=== PATIENT | female | born 1980 | race Hispanic/Latino ===

== ENCOUNTER 2018-07-19 15:32 | Inpatient (IN) | payer BC ==
[~2018-07-19] VITALS: Ht 165.1 cm; Wt 120.2 kg
[~2018-07-19 15:32] MED LIST: CELEXA20 MG PO; LIDOCAINE HCL 2% LOCAL INJ 5 ML SDV VIAL INJ ONE; NORCO 7.5-3251 EACH PO; PROPOFOL IV EMULSION 10 MG/ML 20 ML VIAL ONE; ULTRAM50 MG PO; Z.0.ZONEGRAN100 MG
--- OUTSIDE RECORDS SUMMARY | 2018-07-19 15:36 | XMS REPORT | Continuity of Care Document ---
Author Author [facility] Interface Address Unknown Phone Unavailable Problems Problem Status Onset Date Classification Date Reported Comments Source NUMBNESS Active 07/26/2016 [facility] Endometriosis Resolved 11/17/2015 Problem 08/03/2016 [facility] Benign intracranial hypertension<sup>1</sup> Active 09/12/2014 Problem 08/03/2016 Data migrated from [employer] on 06/17/2016. Originally documented as BIH (benign intracranial hypertension). 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 There is no droop of the left face or ptosis. 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 This movement disorder is made worse by anxiety which is in evidence here but only since the BIH dx. CAIs can unmask panic disorder secondarily. Originally documented as Hemifacial spasm. 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 Originally documented as Hemiplegic migraine. 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 The patient s primary symptoms complex at this time is migraine with neurological aura (paresthesias). This is not improved by acetazolamide. Origina lly documented as Migraine with aura, intractable. [facility] Pseudotumor cerebri Resolved Problem 08/03/2016 [facility] HEADACHE Active [facility] Medications Medication Details Route Status Patient Instructions Ordering Provider Order Date Source gabapentin 300 MG Oral Capsule 300 mg, 1 cap, Route: PO, Drug form: CAP, TID, Dosing Weight 115.909, kg, Start date: 07/31/16 13:00:00 CDT, Duration: 30 day, Stop date: 08/30/16 9:00:00 CDTNotes: (Same as: Neurontin) Inactive 07/31/2016 [facility] Physical Therapy See Instructions, MISC, ONCALL, Evaluate and Treat 3 times per week for back pain and left leg weakness, # 1 unit, 0 Refill(s) On Hold 07/31/2016 [facility] topiramate 25 mg oral tablet 25 mg=1 tab, PO, Daily, # 30 tab, 3 Refill(s) On Hold 07/31/2016 [facility] gabapentin 100 MG Oral Capsule 300 mg=3 cap, PO, TID, # 270 cap, 3 Refill(s) On Hold 07/31/2016 [facility] acetaZOLAMIDE 250 mg oral tablet 750 mg=3 tab, PO, BID, # 180 tab, 3 Refill(s) On Hold 07/31/2016 [facility] Topamax 25 mg, 1 tab, Route: PO, Drug form: TAB, Daily, Start date: 07/31/16 9:00:00 CDT, Duration: 30 day, Stop date: 08/29/16 9:00:00 CDTNotes: (Same As: Topamax) "Do Not Crush" Inactive 07/31/2016 [facility] Ofirmev 1,000 mg, 100 mL, Route: IV, Drug form: INJ, ONCE, Dosing Weight 115.909, kg, PRN Pain Score 1-3, for > or=50 kg, Priority: NOW, Start date: 07/31/16 7:09:00 CDTNotes: Infuse over 15 minutes Do not exceed 4gm/day of acetaminophen MEDICATION WASTE Product Size: 1000 mg Product Wasted: _0__ mg Inactive 07/31/2016 [facility] Tylenol 650 mg, 20.3 mL, Route: PO, Drug form: LIQ, Q4H, Dosing Weight 115.909, kg, PRN Pain Score 6-10, Start date: 07/30/16 18:54:00 CDT, Duration: 30 day, Stop date: 08/29/16 18:53:00 CDTNotes: Max acetamino grtf=[id number]/day (4 gm/day). (Same as: Tylenol) No Longer Active 07/30/2016 [facility] topiramate 50 mg, Route: PO, Drug form: TAB, Q12H, Dosing Weight 115.909, kg, Start date: 07/30/16 13:03:00 CDT, Duration: 30 day, Stop date: 08/29/16 9:00:00 CDT Inactive 07/30/2016 [facility] Fioricet 1 tab, Route: PO, Drug Form: TAB, Dosing Weight 115.909, kg, Q4H, PRN Headache 1-5, Start date: 07/30/16 12:52:00 CDT, Duration: 30 day, Stop date: 08/29/16 12:51:00 CDTNotes: (acetaminophen-butalbit al-caffeine 325-50-40mg) Do not exceed 4 gm/day of acetaminophen. (Same as: Esgic, Fioricet) No Longer Active 07/30/2016 [facility] Topamax 25 mg, 1 tab, Route: PO, Drug form: TAB, ONCE, Dosing Weight 115.909, kg, Priority: NOW, Start date: 07/30/16 12:52:00 CDT, Stop date: 07/30/16 12:52:00 CDTNotes: (Same As: Topamax) "Do Not Crush" Inactive 07/30/2016 [facility] gabapentin 100 mg, 1 cap, Route: PO, Drug form: CAP, TID, Dosing Weight 111.22, kg, Start date: 07/30/16 9:00:00 CDT, Duration: 30 day, Stop date: 08/28/16 17:00:00 CDTNotes: (Same as: Neurontin) No Longer Active 07/30/2016 [facility] Acetazolamide 750 mg, 3 tab, Route: PO, Drug form: TAB, BID, Dosing Weight 111.22, kg, Start date: 07/30/16 9:00:00 CDT, Duration: 30 day, Stop date: 08/28/16 17:00:00 CDTNotes: (Same as: Diamox) No Longer Active 07/30/2016 [facility] Saline Flush 0.9% 10 ml, Route: IVP, Drug Form: INJ, Dosing Weight 111.22, kg, Q12H, Start date: 07/30/16 9:00:00 CDT, Duration: 30 day, Stop date: 08/28/16 21:00:00 CDTNotes: Same as: BD Posiflush Sterile No Longer Active 07/30/2016 [facility] Docusate Sodium 100 MG Oral Capsule 100 mg, 1 cap, Route: PO, Drug form: CAP, Q12H, Dosing Weight 111.22, kg, Start date: 07/30/16 9:00:00 CDT, Duration: 30 day, Stop date: 08/28/16 21:00:00 CDTNotes: (Same as: Colace) (Do Not Crush) No Longer Active 07/30/2016 [facility] heparin 7,500 unit, 1.5 mL, Route: SUB-Q, Drug form: INJ, Q8H, Dosing Weight 111.22, kg, Start date: 07/30/16 8:00:00 CDT, Duration: 30 day, Stop date: 08/29/16 0:00:00 CDTNotes: porcine heparin No Longer Active 07/30/2016 [facility] tramadol hydrochloride 50 MG Oral Tablet 50 mg=1 tab, PO, Daily, 0 Refill(s) On Hold 07/30/2016 [facility] gabapentin 100 MG Oral Capsule 100 mg=1 cap, PO, BID, 0 Refill(s) No Longer Active 07/30/2016 [facility] acetaZOLAMIDE 250 mg oral tablet 500 mg=2 tab, PO, BID, 0 Refill(s) No Longer Active 07/30/2016 [facility] chlorhexidine gluconate 1.2 MG/ML Mouthwash 15 mL, Route: Swab Mouth, Q4Hnow, Drug form: LIQ, Start date: 07/30/16 6:00:00 CDT, Duration: 30 day, Stop date: 08/29/16 2:00:00 CDTNotes: (Same As: Peridex) No Longer Active 07/30/2016 [facility] Magnesium Sulfate 1 gm, 100 mL, Route: IV, Drug form: INJ, ONCE, Dosing Weight 111.22, kg, PRN Headache 1-3, Priority: STAT, Start date: 07/30/16 5:09:00 CDTNotes: WASTE: F/P - Sink; E - Municipal Trash Bin Inactive 07/30/2016 [facility] Insulin regular 10 unit, 0.1 mL, Route: SUB-Q, Drug form: SOLN, Sliding Scale, Dosing Weight 111.22, kg, PRN Blood Glucose Results, Start date: 07/30/16 5:07:00 CDT, Duration: 30 day, Stop date: 08/29/16 5:06:00 CDTNot es: (Same as: Humulin R) Roll in palms of hands gently; Do not shake vigorously. "single patient use only" (Restricted to patients requiring a dose > 60 units) WASTE: F/P - Black; E - Municipal Trash Bin Stable for 28 days at room temperature Expires in days from Date No Longer Active 07/30/2016 [facility] Saline Flush 0.9% 10 ml, Route: IVP, Drug Form: INJ, Dosing Weight 111.22, kg, PRN, PRN Line Flush, Start date: 07/30/16 5:07:00 CDT, Duration: 30 day, Stop date: 08/29/16 5:06:00 CDTNotes: Same as: BD Posiflush Sterile No Longer Active 07/30/2016 [facility] ketOROLAC 30 mg/mL injectable solution 30 mg, 1 mL, Route: IVP, Drug form: INJ, ONCE, Dosing Weight 111.22, kg, Priority: STAT, Start date: 07/29/16 23:20:00 CDT, Stop date: 07/29/16 23:20:00 CDTNotes: (Same as:Toradol) IV bolus must be given >15 seconds. Give IM administration slowly and deeply into the muscle. Not for use > 4 days MEDICATION WASTE Product Size: 30 mg Product Wasted: _0__ mg Inactive 07/30/2016 [facility] Benadryl 25 mg, 0.5 mL, Route: IVP, Drug form: INJ, ONCE, Dosing Weight 111.22, kg, Priority: STAT, Start date: 07/29/16 23:19:00 CDT, Stop date: 07/29/16 23:19:00 CDTNotes: (Same as: Benadryl) Inactive 07/30/2016 [facility] Reglan 10 mg, 2 mL, Route: IVP, Drug form: INJ, ONCE, Dosing Weight 111.22, kg, Priority: STAT, Start date: 07/29/16 23:19:00 CDT, Stop date: 07/29/16 23:19:00 CDTNotes: (Same as: Reglan) Inactive 07/30/2016 [facility] Plasma-Lyte A PH-7.4 1000 ml INJ 1,000 mL 1,000 mL, Rate: 999 ml/hr, Infuse over: 1 hr, Route: IV, Dosing Weight 111.22 kg, Total Volume: 1,000, Start date: 07/29/16 23:19:00 CDT, Duration: 1 doses or times, Stop date: 07/30/16 0:18:00 CDTNotes: WASTE: F/P - Sink; E - Municipal Trash Bin Inactive 07/30/2016 [facility] Allergies, Adverse Reactions, Alerts Substance Category Reaction Severity Reaction type Status Date Reported Comments Source Immunizations Immunization Date Given Site Status Last Updated Comments Source Results Order Name Results Value Reference Range Date Interpretation Comments Source CHEM PANEL Magnesium Lvl 2.6 mg/dL 1.8 - 2.4 07/31/2016 [facility] CHEM PANEL eGFR 102 mL/min/1.73m2 07/31/2016 Result Comment: The eGFR is calculated using the CKD-EPI formula. In most young, healthy individuals the eGFR will be >90 mL/min/1.73m2. The eGFR declines with age. An eGFR of 60-89 may be normal in some populations, particularly the elderly, for whom the CKD-EPI formula has not been extensively validated. Use of the eGFR is not recommended in the following populations: Individuals with unstable creatinine concentrations, including patients and those with serious co-morbid conditions. Patients with extremes in muscle mass or diet. The data above are obtained from the National Kidney Disease Education Program (NKDEP) which additionally recommends that when the eGFR is used in patients with extremes of body mass index for purposes of drug dosing, the eGFR should be multiplied by the estimated BMI. [facility] CHEM PANEL CO2 21 meq/L 24 - 32 07/31/2016 [facility] CHEM PANEL Calcium Lvl 8.7 mg/dL 8.5 - 10.5 07/31/2016 [facility] CHEM PANEL Chloride Lvl 108 meq/L 95 - 109 07/31/2016 [facility] CHEM PANEL Potassium Lvl 4.1 meq/L 3.5 - 5.1 07/31/2016 [facility] CHEM PANEL Glucose Lvl 108 mg/dL 70 - 99 07/31/2016 [facility] CHEM PANEL BUN 14 mg/dL 7 - 22 07/31/2016 [facility] CHEM PANEL Sodium Lvl 139 meq/L 135 - 145 07/31/2016 [facility] CHEM PANEL Creatinine Lvl 0.75 mg/dL 0.50 - 1.40 07/31/2016 [facility] CHEM PANEL AGAP 14.1 meq/L 10.0 - 20.0 07/31/2016 [facility] CHEM PANEL Phosphorus 4.7 mg/dL 2.5 - 4.5 07/31/2016 [facility] HEMATOLOGY Basophils 0.6 % 0.0 - 1.0 07/31/2016 [facility] HEMATOLOGY Monocytes # 0.3 K/CMM 0.0 - 0.8 07/31/2016 [facility] HEMATOLOGY Segs-Bands # 3.7 K/CMM 1.5 - 8.1 07/31/2016 [facility] HEMATOLOGY Eosinophils 4.2 % 0.0 - 4.0 07/31/2016 [facility] HEMATOLOGY Lymphocytes # 1.6 K/CMM 1.0 - 5.5 07/31/2016 [facility] HEMATOLOGY Eosinophils # 0.2 K/CMM 0.0 - 0.5 07/31/2016 [facility] HEMATOLOGY Lymphocytes 27.0 % 20.0 - 40.0 07/31/2016 [facility] HEMATOLOGY Monocytes 5.2 % 2.0 - 12.0 07/31/2016 [facility] HEMATOLOGY Segs 63.0 % 45.0 - 75.0 07/31/2016 [facility] HEMATOLOGY MPV 8.4 fL 7.4 - 10.4 07/31/2016 [facility] HEMATOLOGY Platelet 245 K/CMM 133 - 450 07/31/2016 [facility] HEMATOLOGY RDW 13.7 % 11.5 - 14.5 07/31/2016 [facility] HEMATOLOGY RBC 4.22 M/CMM 4.20 - 5.40 07/31/2016 [facility] HEMATOLOGY WBC 5.9 K/CMM 3.7 - 10.4 07/31/2016 [facility] HEMATOLOGY MCHC 33.6 g/dL 32.0 - 36.0 07/31/2016 [facility] HEMATOLOGY MCV 92.9 fL 80.0 - 98.0 07/31/2016 [facility] HEMATOLOGY Hgb 13.2 g/dL 12.0 - 16.0 07/31/2016 [facility] HEMATOLOGY MCH 31.2 pg 27.0 - 31.0 07/31/2016 [facility] HEMATOLOGY Hct 39.2 % 36.0 - 48.0 07/31/2016 [facility] PARATHYROID PROFILE Ca Norm WB 1.07 mMol/L 1.05 - 1.25 07/31/2016 [facility] PARATHYROID PROFILE Ca Ion WB 1.11 mMol/L 1.05 - 1.25 07/31/2016 [facility] Spine lumbar wo contrast MRI Spine lumbar wo contrast MRI EXAM: MRI LUMBAR SPINE WITHOUT CONTRAST DATE: 07/30/2016 9:05 PM CDT INDICATION: Pain with radiculopathy COMPARISON: None TECHNIQUE: Multiplanar, multisequence MR imaging of the lumbar spine. IV contrast: None. FINDINGS: Axial T1-weighted images are degraded as a consequence of technical artifact, partly related to the patient's body habitus. These were repeated without success. Image quality is otherwise mildly degraded as a consequence of patient motion. However, the study remains of diagnostic utility. The conus terminates at L1. It demonstrates normal signal intensity. There is no abnormal thickening of the filum. The vertebral alignment is normal. The vertebral heights are maintained. There is normal bone marrow signal intensity. Intervertebral disc heights and signal intensity are preserved in the upper lumbar region. There is no significant spinal canal or neural foraminal stenosis. L4-L5: A moderate reduction of disc height is present accompanied by mild disc desiccation. Left central and foraminal protrusion is present displacing the traversing L5 root. This, however, does not produce significant foraminal encroachment on L4. Bilateral facet osteoarthritis is present, greater on the left without resulting canal or foraminal narrowing. L5-S1: Intervertebral disc height and signal are moderately diminished. Elevated T2 signal is seen in the posterior disc annulus indicative of an annular fissure not accompanied by a disc protrusion. Early facet arthritis is noted bilaterally. Once again, this does not cause canal or foraminal encroachment. The visualized paraspinous soft tissues are unremarkable. There is no hydronephrosis bilaterally. IMPRESSION: 1. Disc herniation on the left at L4-L5 displacing the traversing L5 nerve root. 2. Early disc degenerative change at L5-S1. The annular fissure present at this level can be an additional source of low back pain. 07/30/2016 - - Read by: Norman Thorpe MD Dictated Date/time: 07/30/16 22:39 Electronically Signed by: Norman Thorpe MD 07/30/16 22:[address] [facility] BACTERIAL - SEROLOGY Source Strep Cerebral Spinal Fluid 07/30/2016 [facility] BACTERIAL - SEROLOGY Strep pneumoniae Ag Negative (07/30/16 10:30 AM) Negative 07/30/2016 [facility] BODY FLUIDS Protein CSF 21 mg/dL 15 - 45 07/30/2016 [facility] BODY FLUIDS Supernat CSF Colorless (07/30/16 10:30 AM) Colorless 07/30/2016 [facility] BODY FLUIDS WBC CSF 0 /mm3 0 - 53 07/30/2016 [facility] BODY FLUIDS RBC CSF 0 /mm3 0 - 03 07/30/2016 [facility] BODY FLUIDS Clarity CSF Clear (07/30/16 10:30 AM) Clear 07/30/2016 [facility] BODY [facility] Comment CSF Differential not performed when WBC is zero. 07/30/2016 [facility] BODY FLUIDS Tube Num CSF 4 07/30/2016 [facility] BODY FLUIDS Color CSF Colorless (07/30/16 10:30 AM) Colorless 07/30/2016 [facility] BODY FLUIDS Comment CSF Differential not performed when WBC is zero. 07/30/2016 [facility] BODY FLUIDS RBC CSF 0 /mm3 0 - 03 07/30/2016 [facility] BODY FLUIDS Supernat CSF Colorless (07/30/16 10:30 AM) Colorless 07/30/2016 [facility] BODY FLUIDS Clarity CSF Clear (07/30/16 10:30 AM) Clear 07/30/2016 [facility] BODY FLUIDS Tube Num CSF 1 07/30/2016 [facility] BODY FLUIDS Color CSF Colorless (07/30/16 10:30 AM) Colorless 07/30/2016 [facility] BODY FLUIDS WBC CSF 0 /mm3 0 - 53 07/30/2016 [facility] BODY FLUIDS Glucose CSF 63 mg/dL 45 - 80 07/30/2016 [facility] CHEM PANEL Glucose Lvl 97 mg/dL 70 - 99 07/30/2016 [facility] FUNGAL - SEROLOGY Crypto Ag CSF Negative (07/30/16 10:30 AM) Negative 07/30/2016 [facility] ELECTROLYTES Potassium Lvl 3.8 meq/L 3.5 - 5.1 07/30/2016 [facility] ELECTROLYTES Sodium Lvl 143 meq/L 135 - 145 07/30/2016 [facility] ELECTROLYTES Total Protein 6.9 g/dL 6.4 - 8.4 07/30/2016 [facility] ELECTROLYTES AST 22 unit/L 0 - 37 07/30/2016 [facility] ELECTROLYTES ALT 44 unit/L 0 - 65 07/30/2016 [facility] ELECTROLYTES Chloride Lvl 107 meq/L 95 - 109 07/30/2016 [facility] ELECTROLYTES Calcium Lvl 8.9 mg/dL 8.5 - 10.5 07/30/2016 [facility] ELECTROLYTES Bili Total 0.4 mg/dL 0.2 - 1.3 07/30/2016 [facility] ELECTROLYTES Alk Phos 94 unit/L 39 - 136 07/30/2016 [facility] ELECTROLYTES eGFR 114 mL/min/1.73m2 07/30/2016 Result Comment: The eGFR is calculated using the CKD-EPI formula. In most young, healthy individuals the eGFR will be >90 mL/min/1.73m2. The eGFR declines with age. An eGFR of 60-89 may be normal in some populations, particularly the elderly, for whom the CKD-EPI formula has not been extensively validated. Use of the eGFR is not recommended in the following populations: Individuals with unstable creatinine concentrations, including patients and those with serious co-morbid conditions. Patients with extremes in muscle mass or diet. The data above are obtained from the National Kidney Disease Education Program (NKDEP) which additionally recommends that when the eGFR is used in patients with extremes of body mass index for purposes of drug dosing, the eGFR should be multiplied by the estimated BMI. [facility] ELECTROLYTES Creatinine Lvl 0.64 mg/dL 0.50 - 1.40 07/30/2016 [facility] ELECTROLYTES BUN 13 mg/dL 7 - 22 07/30/2016 [facility] ELECTROLYTES Albumin Lvl 3.3 g/dL 3.5 - 5.0 07/30/2016 [facility] ELECTROLYTES CO2 29 meq/L 24 - 32 07/30/2016 [facility] ELECTROLYTES Glucose Lvl 106 mg/dL 70 - 99 07/30/2016 [facility] ELECTROLYTES AGAP 10.8 meq/L 10.0 - 20.0 07/30/2016 [facility] ELECTROLYTES B/C Ratio 20 6 - 25 07/30/2016 [facility] ELECTROLYTES Globulin 3.6 g/dL 2.7 - 4.2 07/30/2016 [facility] ELECTROLYTES A/G Ratio 0.9 0.7 - 1.6 07/30/2016 [facility] HEMATOLOGY Eosinophils # 0.3 K/CMM 0.0 - 0.5 07/30/2016 [facility] HEMATOLOGY Monocytes # 0.4 K/CMM 0.0 - 0.8 07/30/2016 [facility] HEMATOLOGY Lymphocytes # 1.8 K/CMM 1.0 - 5.5 07/30/2016 [facility] HEMATOLOGY Basophils 0.5 % 0.0 - 1.0 07/30/2016 [facility] HEMATOLOGY Eosinophils 3.7 % 0.0 - 4.0 07/30/2016 [facility] HEMATOLOGY Segs-Bands # 5.1 K/CMM 1.5 - 8.1 07/30/2016 [facility] HEMATOLOGY Lymphocytes 23.1 % 20.0 - 40.0 07/30/2016 [facility] HEMATOLOGY Segs 67.3 % 45.0 - 75.0 07/30/2016 [facility] HEMATOLOGY Monocytes 5.4 % 2.0 - 12.0 07/30/2016 [facility] HEMATOLOGY PT 13.5 s 12.0 - 14.7 07/30/2016 [facility] HEMATOLOGY PTT 29.4 s 22.9 - 35.8 07/30/2016 [facility] HEMATOLOGY INR 1.01 0.85 - 1.17 07/30/2016 [facility] HEMATOLOGY RBC 4.26 M/CMM 4.20 - 5.40 07/30/2016 [facility] HEMATOLOGY MPV 7.9 fL 7.4 - 10.4 07/30/2016 [facility] HEMATOLOGY Platelet 254 K/CMM 133 - 450 07/30/2016 [facility] HEMATOLOGY RDW 13.5 % 11.5 - 14.5 07/30/2016 [facility] HEMATOLOGY Hct 38.7 % 36.0 - 48.0 07/30/2016 [facility] HEMATOLOGY Hgb 13.1 g/dL 12.0 - 16.0 07/30/2016 [facility] HEMATOLOGY MCHC 33.8 g/dL 32.0 - 36.0 07/30/2016 [facility] HEMATOLOGY MCH 30.7 pg 27.0 - 31.0 07/30/2016 [facility] HEMATOLOGY MCV 90.9 fL 80.0 - 98.0 07/30/2016 [facility] HEMATOLOGY WBC 7.6 K/CMM 3.7 - 10.4 07/30/2016 [facility] Spine lumbar puncture w fluoro DX Spine lumbar puncture w fluoro DX EXAM: Lumbar Puncture with fluoroscopic guidance. Diagnostic DATE: 07/30/2016 5:12 AM CDT INDICATION: Headache. History of elevated CSF opening pressure. TECHNIQUE Informed consent was obtained from the patient. Following the time out procedure, the lower back was prepped and draped in sterile fashion. Under fluoroscopic guidance and with the patient in the prone position a 22 gauge spinal Quincke needle was advanced into the thecal sac at the L2-L3 level. A total amount of 9 mL of clear spinal fluid was collected. Dr. Thorpe was present for the critical portions of the procedure. COMPLICATIONS: None FINDINGS: The opening pressure was 23 cm water in the prone position. FLUOROSCOPY TIME: 0.1 minutes with a skin dose of 1.9 mGy. IMPRESSION: 1. Successful LP. 2. Clear CSF. 3. Normal opening pressure. 07/30/2016 - - This report was dictated by a [employer] Instructor/Fellow. I have personally reviewed the images as well as the Resident's interpretation and agree with the findings. Read by: Kyle Cardona MD Resident: Kyle Cardona MD Dictated Date/time: 07/30/16 12:47 Electronically Signed by: Norman Thorpe MD 07/30/16 13:[address] [facility] URINE AND STOOL UA Blood Negative (07/29/16 11:43 PM) Negative 07/30/2016 [facility] URINE AND STOOL UA Bili Negative *NA* (07/29/16 11:43 PM) Negative 07/30/2016 [facility] URINE AND STOOL UA Urobilinogen 0.2 EU/dL 0.1 - 1.0 07/30/2016 [facility] URINE AND STOOL UA Nitrite Negative (07/29/16 11:43 PM) Negative 07/30/2016 [facility] URINE AND STOOL UA Leuk Est Negative (07/29/16 11:43 PM) Negative 07/30/2016 [facility] URINE AND STOOL UA Color Yellow *NA* (07/29/16 11:43 PM) Yellow 07/30/2016 [facility] URINE AND STOOL UA Turbidity Slight Cloudy (07/29/16 11:43 PM) Clear 07/30/2016 [facility] [facility] UR[facility] AND STOOL UA Glucose Negative mg/dL Negative mg/dL 07/30/2016 [facility] URINE AND STOOL UA Spec Grav 1.025 <=1.030 07/30/2016 [facility] URINE AND STOOL UA pH 6.0 5.0 - 8.0 07/30/2016 [facility] URINE AND STOOL UA Protein Negative mg/dL Negative mg/dL 07/30/2016 [facility] URINE AND STOOL UA Ketones Negative mg/dL Negative mg/dL 07/30/2016 [facility] URINE AND STOOL UA Mucus Few /LPF None Seen /LPF 07/30/2016 [facility] URINE AND STOOL UA RBC 0-2 /HPF 0 - 2 07/30/2016 [facility] URINE AND STOOL UA WBC 3-5 /HPF None Seen /HPF 07/30/2016 [facility] URINE AND STOOL UA Amorph Deirdre Few /HPF None Seen /HPF 07/30/2016 [facility] URINE AND STOOL UA Bacteria Few /HPF None Seen /HPF 07/30/2016 [facility] URINE AND STOOL UA Sq Epi Few /LPF Few /LPF 07/30/2016 [facility] CHEM PANEL eGFR 80 mL/min/1.73m2 07/30/2016 Result Comment: The eGFR is calculated using the CKD-EPI formula. In most young, healthy individuals the eGFR will be >90 mL/min/1.73m2. The eGFR declines with age. An eGFR of 60-89 may be normal in some populations, particularly the elderly, for whom the CKD-EPI formula has not been extensively validated. Use of the eGFR is not recommended in the following populations: Individuals with unstable creatinine concentrations, including patients and those with serious co-morbid conditions. Patients with extremes in muscle mass or diet. The data above are obtained from the National Kidney Disease Education Program (NKDEP) which additionally recommends that when the eGFR is used in patients with extremes of body mass index for purposes of drug dosing, the eGFR should be multiplied by the estimated BMI. [facility] CHEM PANEL Calcium Lvl 8.6 mg/dL 8.5 - 10.5 07/30/2016 [facility] CHEM PANEL AGAP 10.9 meq/L 10.0 - 20.0 07/30/2016 [facility] CHEM PANEL Potassium Lvl 3.9 meq/L 3.5 - 5.1 07/30/2016 [facility] CHEM PANEL CO2 30 meq/L 24 - 32 07/30/2016 [facility] CHEM PANEL Chloride Lvl 105 meq/L 95 - 109 07/30/2016 [facility] CHEM PANEL BUN 15 mg/dL 7 - 22 07/30/2016 [facility] CHEM PANEL Sodium Lvl 142 meq/L 135 - 145 07/30/2016 [facility] CHEM PANEL Creatinine Lvl 0.92 mg/dL 0.50 - 1.40 07/30/2016 [facility] HEMATOLOGY MCV 91.1 fL 80.0 - 98.0 07/30/2016 [facility] HEMATOLOGY MCH 31.5 pg 27.0 - 31.0 07/30/2016 [facility] HEMATOLOGY Hgb 13.0 g/dL 12.0 - 16.0 07/30/2016 [facility] HEMATOLOGY Hct 37.5 % 36.0 - 48.0 07/30/2016 [facility] HEMATOLOGY MPV 7.9 fL 7.4 - 10.4 07/30/2016 [facility] HEMATOLOGY Platelet 263 K/CMM 133 - 450 07/30/2016 [facility] HEMATOLOGY RBC 4.11 M/CMM 4.20 - 5.40 07/30/2016 [facility] HEMATOLOGY MCHC 34.6 g/dL 32.0 - 36.0 07/30/2016 [facility] HEMATOLOGY RDW 13.5 % 11.5 - 14.5 07/30/2016 [facility] HEMATOLOGY WBC 7.9 K/CMM 3.7 - 10.4 07/30/2016 [facility] HEMATOLOGY Segs 64.0 % 45.0 - 75.0 07/30/2016 [facility] HEMATOLOGY Lymphocytes 25.6 % 20.0 - 40.0 07/30/2016 [facility] HEMATOLOGY Monocytes 6.4 % 2.0 - 12.0 07/30/2016 [facility] HEMATOLOGY Eosinophils 3.5 % 0.0 - 4.0 07/30/2016 [facility] HEMATOLOGY Basophils 0.5 % 0.0 - 1.0 07/30/2016 [facility] HEMATOLOGY Segs-Bands # 5.0 K/CMM 1.5 - 8.1 07/30/2016 [facility] HEMATOLOGY Eosinophils # 0.3 K/CMM 0.0 - 0.5 07/30/2016 [facility] HEMATOLOGY Lymphocytes # 2.0 K/CMM 1.0 - 5.5 07/30/2016 [facility] HEMATOLOGY Monocytes # 0.5 K/CMM 0.0 - 0.8 07/30/2016 [facility] Brain wo contrast CT Brain wo contrast CT EXAM: CT BRAIN DATE: 07/29/2016 at 23:31 CLINICAL INFORMATION: ,, - new headache, LUE/LLE weakness/numbness COMPARISON: None TECHNIQUE: Axial images of the brain were obtained from the skull base through the vertex without contrast material administration. DLP: 870 mGycm DISCUSSION: The density of the brain parenchyma is unremarkable. No hydrocephalus, midline shift or mass effect. No acute hemorrhage. No bony lesions. Opacification of the left maxillary sinus. IMPRESSION: No intracranial abnormality. 07/29/2016 - - This report was dictated by a [employer] Instructor/Fellow. I have personally reviewed the images as well as the Resident's interpretation and agree with the findings. Read by: Abelardo Reyes MD Resident: Abelardo Reyes MD Dictated Date/time: 07/29/16 23:36 Electronically Signed by: Jayla Barajas MD 07/30/16 00:[address] [facility] Vital Signs Vital Sign Value Date Comments Source Systolic (mm Hg) 117 07/31/2016 [facility] Diastolic (mm Hg) 78 07/31/2016 [facility] Respitory Rate 18 07/31/2016 [facility] Heart Rate 55 07/31/2016 [facility] Temperature Oral (F) 98.2 F 07/31/2016 [facility] Temperature Oral (F) 97.9 F 07/31/2016 [facility] Heart Rate 55 07/31/2016 [facility] Respitory Rate 18 07/31/2016 [facility] Systolic (mm Hg) 120 07/31/2016 [facility] Diastolic (mm Hg) 79 07/31/2016 [facility] Temperature Oral (F) 97.9 F 07/31/2016 [facility] Systolic (mm Hg) 104 07/31/2016 [facility] Diastolic (mm Hg) 65 07/31/2016 [facility] Heart Rate 60 07/31/2016 [facility] Respitory Rate 18 07/31/2016 [facility] Height 165.1 cm 07/30/2016 [facility] BMI Calculated 42.52 07/30/2016 [facility] Weight 115.909 07/30/2016 [facility] Encounters Location Location Details Encounter Type Encounter Number Reason For Visit Attending Provider ADM Date DC Date Status Source [facility] Inpatient [id number] Bladimir [facility] 07/29/2016 07/31/2016 [facility] Procedures Procedure Code Date Perfomer Comments Source Spinal puncture, lumbar, diagnostic 89169 07/30/2016 [facility] section [id number] [facility] Hysterectomy [id number] [facility] Tonsillectomy [id number] [facility]
--- OUTSIDE RECORDS SUMMARY | 2018-07-19 15:36 | XMS REPORT | Summary of Care ---
Author Author [facility] Organization [facility] Address Unknown Phone Unavailable Encounter MARLIN Montoya(TATIANA) [id number] Date(s): 07/29/16 - 07/31/16 [facility] [address] [employer] provided by [facility] [place] [address]- Discharge Disposition: Home or Self Care Attending Physician: Bladimir Miller MD Admitting Physician: Bladimir Miller MD Vital Signs 1 2 3 Most recent to oldest [Reference Range]: 165.1 cm (07/30/16 7:38 AM) Height 98.2 DegF (07/31/16 12:01 PM) 97.9 DegF (07/31/16 8:10 AM) 97.9 DegF (07/31/16 3:35 AM) Temperature Oral [96.4-99.1 DegF] 117/78 mmHg (07/31/16 12:01 PM) 120/79 mmHg (07/31/16 8:10 AM) 104/65 mmHg (07/31/16 3:35 AM) Blood Pressure [90-140/60-90 mmHg] 18 BRMIN (07/31/16 12:01 PM) 18 BRMIN (07/31/16 8:10 AM) 18 BRMIN (07/31/16 3:35 AM) Respiratory Rate [14-20 BRMIN] 55 bpm *LOW* (07/31/16 12:01 PM) 55 bpm *LOW* (07/31/16 8:10 AM) 60 bpm (07/31/16 3:35 AM) Peripheral Pulse Rate [60-100 bpm] 115.909 kg (07/30/16 7:38 AM) Weight 42.52 m2 (07/30/16 7:38 AM) Body Mass Index Problem List Condition Effective Dates Status Health Status Informant 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 Originally documented as BIH (benign intracranial hypertension). 2Data migrated from [employer] on 06/17/2016. There is no droop of the left face or ptosis. 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 This movement disorder is made worse by anxiety which is in evidence he re but only since the BIH dx. CAIs can unmask panic disorder secondarily. Origin ally documented as Hemifacial spasm. 3Data migrated from [employer] on 06/17/2016. Originally documented as Hemiplegic migraine. 4Data migrated from [employer] on 06/17/2016. The patient s primary symptoms complex at this time is migraine with neurological aura (paresthesias). This is not improved by acetazolamide. Originally documented as Migraine with aura, intractable. Allergies, Adverse Reactions, Alerts Substance Reaction Severity Status NKDA Active Medications acetaZOLAMIDE 250 mg oral tablet 750 mg=3 tab, PO, BID, # 180 tab, 3 Refill(s) Start Date: 07/31/16 Stop Date: 11/28/16 Status: Suspended acetaZOLAMIDE 250 mg oral tablet 500 mg=2 tab, PO, BID, 0 Refill(s) Start Date: 07/30/16 Stop Date: 07/31/16 Status: Discontinued Benadryl 25 mg, 0.5 mL, Route: IVP, Drug form: INJ, ONCE, Dosing Weight 111.22, kg, Prior ity: STAT, Start date: 07/29/16 23:19:00 CDT, Stop date: 07/29/16 23:19:00 CDT Notes: (Same as: Benadryl) Start Date: 07/29/16 Stop Date: 07/29/16 Status: Completed chlorhexidine topical 0.12% liquid 15 mL, Route: Swab Mouth, Q4Hnow, Drug form: LIQ, Start date: 07/30/16 6:00:00 C DT, Duration: 30 day, Stop date: 08/29/16 2:00:00 CDT Notes: (Same As: Peridex) Start Date: 07/30/16 Stop Date: 07/31/16 Status: Discontinued Diamox 750 mg, 3 tab, Route: PO, Drug form: TAB, BID, Dosing Weight 111.22, kg, Start d ate: 07/30/16 9:00:00 CDT, Duration: 30 day, Stop date: 08/28/16 17:00:00 CDT Notes: (Same as: Diamox) Start Date: 07/30/16 Stop Date: 07/31/16 Status: Discontinued docusate sodium 100 mg oral capsule 100 mg, 1 cap, Route: PO, Drug form: CAP, Q12H, Dosing Weight 111.22, kg, Start date: 07/30/16 9:00:00 CDT, Duration: 30 day, Stop date: 08/28/16 21:00:00 CDT Notes: (Same as: Colace) (Do Not Crush) Start Date: 07/30/16 Stop Date: 07/31/16 Status: Discontinued Fioricet 1 tab, Route: PO, Drug Form: TAB, Dosing Weight 115.909, kg, Q4H, PRN Headache 1 -5, Start date: 07/30/16 12:52:00 CDT, Duration: 30 day, Stop date: 08/29/16 12: 51:00 CDT Notes: (lausykrpyvbxm-xfqkmbjuwb-oetamuxp 325-50-40mg) Do not exceed 4 gm/day o f acetaminophen. (Same as: Esgic, Fioricet) Start Date: 07/30/16 Stop Date: 07/31/16 Status: Discontinued gabapentin 100 mg, 1 cap, Route: PO, Drug form: CAP, TID, Dosing Weight 111.22, kg, Start d ate: 07/30/16 9:00:00 CDT, Duration: 30 day, Stop date: 08/28/16 17:00:00 CDT Notes: (Same as: Neurontin) Start Date: 07/30/16 Stop Date: 07/31/16 Status: Discontinued gabapentin 100 mg oral capsule 300 mg=3 cap, PO, TID, # 270 cap, 3 Refill(s) Start Date: 07/31/16 Stop Date: 11/28/16 Status: Suspended gabapentin 100 mg oral capsule 100 mg=1 cap, PO, BID, 0 Refill(s) Start Date: 07/30/16 Stop Date: 07/31/16 Status: Discontinued gabapentin 300 mg oral capsule 300 mg, 1 cap, Route: PO, Drug form: CAP, TID, Dosing Weight 115.909, kg, Start date: 07/31/16 13:00:00 CDT, Duration: 30 day, Stop date: 08/30/16 9:00:00 CDT Notes: (Same as: Neurontin) Start Date: 07/31/16 Stop Date: 07/31/16 Status: Discontinued heparin 7,500 unit, 1.5 mL, Route: SUB-Q, Drug form: INJ, Q8H, Dosing Weight 111.22, kg, Start date: 07/30/16 8:00:00 CDT, Duration: 30 day, Stop date: 08/29/16 0:00:00 CDT Notes: porcine heparin Start Date: 07/30/16 Stop Date: 07/31/16 Status: Discontinued Insulin regular 10 unit, 0.1 mL, Route: SUB-Q, Drug form: SOLN, Sliding Scale, Dosing Weight 111 .22, kg, PRN Blood Glucose Results, Start date: 07/30/16 5:07:00 CDT, Duration: 30 day, Stop date: 08/29/16 5:06:00 CDT Notes: (Same as: Humulin R) Roll in palms of hands gently; Do not shake vigorou sly. "single patient use only"(Restricted to patients requiring a dose > 60 units)WASTE: F/P - Black; E - Municipal Trash Bin Stable for 28 days at room temperatureExpires in days from Date Start Date: 07/30/16 Stop Date: 07/31/16 Status: Discontinued Insulin regular 2 unit, 0.02 mL, Route: SUB-Q, Drug form: SOLN, Sliding Scale, Dosing Weight 111 .22, kg, PRN Blood Glucose Results, Start date: 07/30/16 5:07:00 CDT, Duration: 30 day, Stop date: 08/29/16 5:06:00 CDT Notes: (Same as: Humulin R) Roll in palms of hands gently; Do not shake vigorou sly. "single patient use only"(Restricted to patients requiring a dose > 60 units)WASTE: F/P - Black; E - Municipal Trash Bin Stable for 28 days at room temperatureExpires in days from Date Start Date: 07/30/16 Stop Date: 07/31/16 Status: Discontinued Insulin regular 4 unit, 0.04 mL, Route: SUB-Q, Drug form: SOLN, Sliding Scale, Dosing Weight 111 .22, kg, PRN Blood Glucose Results, Start date: 07/30/16 5:07:00 CDT, Duration: 30 day, Stop date: 08/29/16 5:06:00 CDT Notes: (Same as: Humulin R) Roll in palms of hands gently; Do not shake vigorou sly. "single patient use only"(Restricted to patients requiring a dose > 60 units)WASTE: F/P - Black; E - Municipal Trash Bin Stable for 28 days at room temperatureExpires in days from Date Start Date: 07/30/16 Stop Date: 07/31/16 Status: Discontinued Insulin regular 6 unit, 0.06 mL, Route: SUB-Q, Drug form: SOLN, Sliding Scale, Dosing Weight 111 .22, kg, PRN Blood Glucose Results, Start date: 07/30/16 5:07:00 CDT, Duration: 30 day, Stop date: 08/29/16 5:06:00 CDT Notes: (Same as: Humulin R) Roll in palms of hands gently; Do not shake vigorou sly. "single patient use only"(Restricted to patients requiring a dose > 60 units)WASTE: F/P - Black; E - Municipal Trash Bin Stable for 28 days at room temperatureExpires in days from Date Start Date: 07/30/16 Stop Date: 07/31/16 Status: Discontinued Insulin regular 8 unit, 0.08 mL, Route: SUB-Q, Drug form: SOLN, Sliding Scale, Dosing Weight 111 .22, kg, PRN Blood Glucose Results, Start date: 07/30/16 5:07:00 CDT, Duration: 30 day, Stop date: 08/29/16 5:06:00 CDT Notes: (Same as: Humulin R) Roll in palms of hands gently; Do not shake vigorou sly. "single patient use only"(Restricted to patients requiring a dose > 60 units)WASTE: F/P - Black; E - Municipal Trash Bin Stable for 28 days at room temperatureExpires in days from Date Start Date: 07/30/16 Stop Date: 07/31/16 Status: Discontinued ketOROLAC 30 mg/mL injectable solution 30 mg, 1 mL, Route: IVP, Drug form: INJ, ONCE, Dosing Weight 111.22, kg, Priorit y: STAT, Start date: 07/29/16 23:20:00 CDT, Stop date: 07/29/16 23:20:00 CDT Notes: (Same as:Toradol) IV bolus must be given >15 seconds. Give IM administration slowly and deeply into the muscle.Not for use > 4 days MEDICATION WASTE Product Size: 30 mgProduct Wasted: _0__ mg Start Date: 07/29/16 Stop Date: 07/29/16 Status: Completed magnesium sulfate 1 gm, 100 mL, Route: IV, Drug form: INJ, ONCE, Dosing Weight 111.22, kg, PRN Hea dache 1-3, Priority: STAT, Start date: 07/30/16 5:09:00 CDT Notes: WASTE: F/P - Sink; E - Municipal Trash Bin Start Date: 07/30/16 Stop Date: 07/30/16 Status: Completed Ofirmev 1,000 mg, 100 mL, Route: IV, Drug form: INJ, ONCE, Dosing Weight 115.909, kg, TN N Pain Score 1-3, for > or=50 kg, Priority: NOW, Start date: 07/31/16 7:09:00 CDT Notes: Infuse over 15 minutesDo not exceed 4gm/day of acetaminophen MEDICAT ION WASTE Product Size: 1000 mgProduct Wasted: _0__ mg Start Date: 07/31/16 Stop Date: 07/31/16 Status: Completed Physical Therapy See Instructions, MISC, ONCALL, Evaluate and Treat 3 times per week for back gwen n and left leg weakness, # 1 unit, 0 Refill(s) Start Date: 07/31/16 Status: Suspended Plasma-Lyte A PH-7.4 1000 ml INJ 1,000 mL 1,000 mL, Rate: 999 ml/hr, Infuse over: 1 hr, Route: IV, Dosing Weight 111.22 kg , Total Volume: 1,000, Start date: 07/29/16 23:19:00 CDT, Duration: 1 doses or t imes, Stop date: 07/30/16 0:18:00 CDT Notes: WASTE: F/P - Sink; E - Municipal Trash Bin Start Date: 07/29/16 Stop Date: 07/29/16 Status: Completed Reglan 10 mg, 2 mL, Route: IVP, Drug form: INJ, ONCE, Dosing Weight 111.22, kg, Priorit y: STAT, Start date: 07/29/16 23:19:00 CDT, Stop date: 07/29/16 23:19:00 CDT Notes: (Same as: Reglan) Start Date: 07/29/16 Stop Date: 07/29/16 Status: Completed Saline Flush 0.9% 10 ml, Route: IVP, Drug Form: INJ, Dosing Weight 111.22, kg, PRN, PRN Line Flush , Start date: 07/30/16 5:07:00 CDT, Duration: 30 day, Stop date: 08/29/16 5:06:0 0 CDT Notes: Same as: BD Posiflush Sterile Start Date: 07/30/16 Stop Date: 07/31/16 Status: Discontinued Saline Flush 0.9% 10 ml, Route: IVP, Drug Form: INJ, Dosing Weight 111.22, kg, Q12H, Start date: 0 07/30/16 9:00:00 CDT, Duration: 30 day, Stop date: 08/28/16 21:00:00 CDT Notes: Same as: BD Posiflush Sterile Start Date: 07/30/16 Stop Date: 07/31/16 Status: Discontinued Topamax 25 mg, 1 tab, Route: PO, Drug form: TAB, Daily, Start date: 07/31/16 9:00:00 CDT , Duration: 30 day, Stop date: 08/29/16 9:00:00 CDT Notes: (Same As: Topamax)"Do Not Crush" Start Date: 07/31/16 Stop Date: 07/31/16 Status: Discontinued Topamax 25 mg, 1 tab, Route: PO, Drug form: TAB, ONCE, Dosing Weight 115.909, kg, Priori ty: NOW, Start date: 07/30/16 12:52:00 CDT, Stop date: 07/30/16 12:52:00 CDT Notes: (Same As: Topamax)"Do Not Crush" Start Date: 07/30/16 Stop Date: 07/30/16 Status: Completed topiramate 50 mg, Route: PO, Drug form: TAB, Q12H, Dosing Weight 115.909, kg, Start date: 0 07/30/16 13:03:00 CDT, Duration: 30 day, Stop date: 08/29/16 9:00:00 CDT Start Date: 07/30/16 Stop Date: 07/30/16 Status: Discontinued topiramate 25 mg oral tablet 25 mg=1 tab, PO, Daily, # 30 tab, 3 Refill(s) Start Date: 07/31/16 Stop Date: 11/28/16 Status: Suspended tramadol 50 mg oral tablet 50 mg=1 tab, PO, Daily, 0 Refill(s) Start Date: 07/30/16 Status: Suspended Tylenol 650 mg, 20.3 mL, Route: PO, Drug form: LIQ, Q4H, Dosing Weight 115.909, kg, PRN Pain Score 6-10, Start date: 07/30/16 18:54:00 CDT, Duration: 30 day, Stop date: 08/29/16 18:53:00 CDT Notes: Max dpttzmktrpxns=5385kx/day (4 gm/day). (Same as: Tylenol) Start Date: 07/30/16 Stop Date: 07/31/16 Status: Discontinued Results ELECTROLYTES 1 2 3 Most recent to oldest [Reference Range]: 139 mEq/L (4/15/17 5:55 AM) 143 mEq/L (07/30/16 6:34 AM) 142 mEq/L (07/29/16 11:14 PM) Sodium Lvl [135-145 mEq/L] 4.1 mEq/L (07/31/16 5:55 AM) 3.8 mEq/L (07/30/16 6:34 AM) 3.9 mEq/L (07/29/16 11:14 PM) Potassium Lvl [3.5-5.1 mEq/L] 108 mEq/L (07/31/16 5:55 AM) 107 mEq/L (07/30/16 6:34 AM) 105 mEq/L (07/29/16 11:14 PM) Chloride Lvl [95-109 mEq/L] 21 mEq/L *LOW* (07/31/16 5:55 AM) 29 mEq/L (07/30/16 6:34 AM) 30 mEq/L (07/29/16 11:14 PM) CO2 [24-32 mEq/L] 14.1 mEq/L (07/31/16 5:55 AM) 10.8 mEq/L (07/30/16 6:34 AM) 10.9 mEq/L (07/29/16 11:14 PM) AGAP [10.0-20.0 mEq/L] CHEM PANEL 1 2 3 Most recent to oldest [Reference Range]: 0.75 mg/dL (07/31/16 5:55 AM) 0.64 mg/dL (07/30/16 6:34 AM) 0.92 mg/dL (07/29/16 11:14 PM) Creatinine Lvl [0.50-1.40 mg/dL] 102 mL/min/1.73m2 1 *NA* (07/31/16 5:55 AM) 114 mL/min/1.73m2 2 *NA* (07/30/16 6:34 AM) 80 mL/min/1.73m2 3 *NA* (07/29/16 11:14 PM) eGFR 14 mg/dL (07/31/16 5:55 AM) 13 mg/dL (07/30/16 6:34 AM) 15 mg/dL (07/29/16 11:14 PM) BUN [7-22 mg/dL] 20 (07/30/16 6:34 AM) B/C Ratio [6-25] 108 mg/dL *HI* (07/31/16 5:55 AM) 97 mg/dL (07/30/16 10:30 AM) 106 mg/dL *HI* (07/30/16 6:34 AM) Glucose Lvl [70-99 mg/dL] 6.9 g/dL (07/30/16 6:34 AM) Total Protein [6.4-8.4 g/dL] 3.3 g/dL *LOW* (07/30/16 6:34 AM) Albumin Lvl [3.5-5.0 g/dL] 3.6 g/dL (07/30/16 6:34 AM) Globulin [2.7-4.2 g/dL] 0.9 (07/30/16 6:34 AM) A/G Ratio [0.7-1.6] 8.7 mg/dL (07/31/16 5:55 AM) 8.9 mg/dL (07/30/16 6:34 AM) 8.6 mg/dL (07/29/16 11:14 PM) Calcium Lvl [8.5-10.5 mg/dL] 4.7 mg/dL *HI* (07/31/16 5:55 AM) Phosphorus [2.5-4.5 mg/dL] 2.6 mg/dL *HI* (07/31/16 5:55 AM) Magnesium Lvl [1.8-2.4 mg/dL] 44 unit/L (07/30/16 6:34 AM) ALT [0-65 unit/L] 22 unit/L (07/30/16 6:34 AM) AST [0-37 unit/L] 94 unit/L (07/30/16 6:34 AM) Alk Phos [39-136 unit/L] 0.4 mg/dL (07/30/16 6:34 AM) Bili Total [0.2-1.3 mg/dL] 1Result Comment: The eGFR is calculated using the [...] from the National Kidney Disease Education Program ( NKDEP) which additionally recommends that when the eGFR is used in patients with extremes of body mass index for purposes of drug dosing, the eGFR should be mul tiplied by the estimated BMI. 2Result Comment: The eGFR is calculated using the [...] from the National Kidney Disease Education Program ( NKDEP) which additionally recommends that when the eGFR is used in patients with extremes of body mass index for purposes of drug dosing, the eGFR should be mul tiplied by the estimated BMI. 3Result Comment: The eGFR is calculated using the [...] from the National Kidney Disease Education Program ( NKDEP) which additionally recommends that when the eGFR is used in patients with extremes of body mass index for purposes of drug dosing, the eGFR should be mul tiplied by the estimated BMI. PARATHYROID PROFILE 1 2 3 Most recent to oldest [Reference Range]: 1.11 mMol/L (07/31/16 5:55 AM) Ca Ion WB [1.05-1.25 mMol/L] 1.07 mMol/L (07/31/16 5:55 AM) Ca Norm WB [1.05-1.25 mMol/L] URINE AND STOOL 1 2 3 Most recent to oldest [Reference Range]: Slight Cloudy (07/29/16 11:43 PM) UA Turbidity [Clear] Yellow *NA* (07/29/16 11:43 PM) UA Color [Yellow] 6.0 (07/29/16 11:43 PM) UA pH [5.0-8.0] 1.025 (07/29/16 11:43 PM) UA Spec Grav [<=1.030] Negative mg/dL (07/29/16 11:43 PM) UA Glucose [Negative mg/dL] Negative (07/29/16 11:43 PM) UA Blood [Negative] Negative mg/dL *NA* (07/29/16 11:43 PM) UA Ketones [Negative mg/dL] Negative mg/dL (07/29/16 11:43 PM) UA Protein [Negative mg/dL] 0.2 EU/dL (07/29/16 11:43 PM) UA Urobilinogen [0.1-1.0 EU/dL] Negative *NA* (07/29/16 11:43 PM) UA Bili [Negative] Negative (07/29/16 11:43 PM) UA Leuk Est [Negative] Negative (07/29/16 11:43 PM) UA Nitrite [Negative] 3-5 /HPF (07/29/16 11:43 PM) UA WBC [None Seen /HPF] 0-2 /HPF (07/29/16 11:43 PM) UA RBC [0-2 /HPF] Few /HPF (07/29/16 11:43 PM) UA Bacteria [None Seen /HPF] Few /LPF (07/29/16 11:43 PM) UA Sq Epi [Few /LPF] Few /HPF *ABN* (07/29/16 11:43 PM) UA Amorph Deirdre [None Seen /HPF] Few /LPF (07/29/16 11:43 PM) UA Mucus [None Seen /LPF] BODY FLUIDS 1 2 3 Most recent to oldest [Reference Range]: 63 mg/dL (07/30/16 10:30 AM) Glucose CSF [45-80 mg/dL] 21 mg/dL (07/30/16 10:30 AM) Protein CSF [15-45 mg/dL] 4 *NA* (07/30/16 10:30 AM) 1 *NA* (07/30/16 10:30 AM) Tube Num CSF Colorless (07/30/16 10:30 AM) Colorless (07/30/16 10:30 AM) Color CSF [Colorless] Clear (07/30/16 10:30 AM) Clear (07/30/16 10:30 AM) Clarity CSF [Clear] Colorless (07/30/16 10:30 AM) Colorless (07/30/16 10:30 AM) Supernat CSF [Colorless] 0 /mm3 (07/30/16 10:30 AM) 0 /mm3 (07/30/16 10:30 AM) RBC CSF [0-0 /mm3] 0 /mm3 (07/30/16 10:30 AM) 0 /mm3 (07/30/16 10:30 AM) WBC CSF [0-5 /mm3] Differential not performed when WBC is zero. *NA* (07/30/16 10:30 AM) Differential not performed when WBC is zero. *NA* (07/30/16 10:30 AM) Comment CSF HEMATOLOGY 1 2 3 Most recent to oldest [Reference Range]: 5.9 K/CMM (07/31/16 5:55 AM) 7.6 K/CMM (07/30/16 6:34 AM) 7.9 K/CMM (07/29/16 11:14 PM) WBC [3.7-10.4 K/CMM] 4.22 M/CMM (07/31/16 5:55 AM) 4.26 M/CMM (07/30/16 6:34 AM) 4.11 M/CMM *LOW* (07/29/16 11:14 PM) RBC [4.20-5.40 M/CMM] 13.2 g/dL (07/31/16 5:55 AM) 13.1 g/dL (07/30/16 6:34 AM) 13.0 g/dL (07/29/16 11:14 PM) Hgb [12.0-16.0 g/dL] 39.2 % (07/31/16 5:55 AM) 38.7 % (07/30/16 6:34 AM) 37.5 % (07/29/16 11:14 PM) Hct [36.0-48.0 %] 92.9 fL (07/31/16 5:55 AM) 90.9 fL (07/30/16 6:34 AM) 91.1 fL (07/29/16 11:14 PM) MCV [80.0-98.0 fL] 31.2 pg *HI* (07/31/16 5:55 AM) 30.7 pg (07/30/16 6:34 AM) 31.5 pg *HI* (07/29/16 11:14 PM) MCH [27.0-31.0 pg] 33.6 g/dL (07/31/16 5:55 AM) 33.8 g/dL (07/30/16 6:34 AM) 34.6 g/dL (07/29/16 11:14 PM) MCHC [32.0-36.0 g/dL] 13.7 % (07/31/16 5:55 AM) 13.5 % (07/30/16 6:34 AM) 13.5 % (07/29/16 11:14 PM) RDW [11.5-14.5 %] 245 K/CMM (07/31/16 5:55 AM) 254 K/CMM (07/30/16 6:34 AM) 263 K/CMM (07/29/16 11:14 PM) Platelet [133-450 K/CMM] 8.4 fL (07/31/16 5:55 AM) 7.9 fL (07/30/16 6:34 AM) 7.9 fL (07/29/16 11:14 PM) MPV [7.4-10.4 fL] 63.0 % (07/31/16 5:55 AM) 67.3 % (07/30/16 6:34 AM) 64.0 % (07/29/16 11:14 PM) Segs [45.0-75.0 %] 27.0 % (07/31/16 5:55 AM) 23.1 % (07/30/16 6:34 AM) 25.6 % (07/29/16 11:14 PM) Lymphocytes [20.0-40.0 %] 5.2 % (07/31/16 5:55 AM) 5.4 % (07/30/16 6:34 AM) 6.4 % (07/29/16 11:14 PM) Monocytes [2.0-12.0 %] 4.2 % *HI* (07/31/16 5:55 AM) 3.7 % (07/30/16 6:34 AM) 3.5 % (07/29/16 11:14 PM) Eosinophils [0.0-4.0 %] 0.6 % (07/31/16 5:55 AM) 0.5 % (07/30/16 6:34 AM) 0.5 % (07/29/16 11:14 PM) Basophils [0.0-1.0 %] 3.7 K/CMM (07/31/16 5:55 AM) 5.1 K/CMM (07/30/16 6:34 AM) 5.0 K/CMM (07/29/16 11:14 PM) Segs-Bands # [1.5-8.1 K/CMM] 1.6 K/CMM (07/31/16 5:55 AM) 1.8 K/CMM (07/30/16 6:34 AM) 2.0 K/CMM (07/29/16 11:14 PM) Lymphocytes # [1.0-5.5 K/CMM] 0.3 K/CMM (07/31/16 5:55 AM) 0.4 K/CMM (07/30/16 6:34 AM) 0.5 K/CMM (07/29/16 11:14 PM) Monocytes # [0.0-0.8 K/CMM] 0.2 K/CMM (07/31/16 5:55 AM) 0.3 K/CMM (07/30/16 6:34 AM) 0.3 K/CMM (07/29/16 11:14 PM) Eosinophils # [0.0-0.5 K/CMM] 13.5 seconds (07/30/16 6:34 AM) PT [12.0-14.7 seconds] 1.01 (07/30/16 6:34 AM) INR [0.85-1.17] 29.4 seconds (07/30/16 6:34 AM) PTT [22.9-35.8 seconds] BACTERIAL - SEROLOGY 1 2 3 Most recent to oldest [Reference Range]: Cerebral Spinal Fluid *NA* (07/30/16 10:30 AM) Source Strep Negative (07/30/16 10:30 AM) Strep pneumoniae Ag [Negative] FUNGAL - SEROLOGY 1 2 3 Most recent to oldest [Reference Range]: Negative (07/30/16 10:30 AM) Crypto Ag CSF [Negative] Immunizations No data available for this section Procedures Procedure Date Related Diagnosis Body Site Spinal puncture, lumbar, diagnostic 07/30/16 section Hysterectomy Tonsillectomy Social History Social History Type Response Alcohol Current, Frequency: 1-2 times per week. Smoking Status Never smoker; Exposure to Tobacco Smoke None; Cigarette Smoking Last 365 Days No; Reg Smoking Cessation Counseling No Assessment and Plan Extracted from: Title: [facility] Neurology Author: Ian Adam MD Date: 07/31/16 Progress Note General Neurology Progress Note Subjective: Patient denies any new complains. No major overnight events. HPI: This is a 35 yo F with a hx of pseudotumor cerebri since 2009 who presents with MUNIZ and blurry vision in the left eye. Patient's MUNIZ are typical for her pseudotumor cerebri. They started about 3 weeks ago and have been progressive. They are located at the back of her neck, top of her head and behind her eyes. Described as pressure like. Last for a couple of hours when she takes tramadol and diamox and after she gets a spinal tap. Worse when laying down. Her last tap was early last year. Her blurry vision started a week ago and it's only in the left eye. She endorses having eye pain with the MUNIZ but no double vision. Patient was tried on topamax in the past but that failed to improve her symptoms. She used to follow up with a neurologist( last seen in november) but he moves and she didnt follow up with anyone else. She follows up with NSGY for spinal impact when she had a fall 3 weeks ago and was found to have cervical spine stenosis per her? Patient endorses having left sided weakness/tingling and numbness since 2009 that has been progressively getting worse. Sh endorses having occasional left facial droop which she says improves after receiving steroids. Patient denies having a hx of strokes in the past. she had brain and spine imaging done before which she claims has been normal. Hospital Course: Admitted to general neurology for w/u of headache and back pain. MRI w/o evidence of increased pressure. Opthalmology did not note any abnormality with the fundal exam. LP with opening pressure of 23. CSF testing normal. Headache releived with increased diamox and topamax. Pts back pain investigated with MRI L -[facility] showed disk herniation for which Ortho (Spine) was consulted and they recommended no surgical intervention. Medications: Scheduled Meds (7):acetaZOLAMIDE (Diamox), chlorhexidine topical (chlorhexidine topical 0.12% liquid), docusate (docusate sodium 100 mg oral capsule), gabapentin (gabapentin 300 mg oral capsule), heparin, sodium chloride (Saline Flush 0.9%), topiramate (Topamax) Unscheduled Meds: None PRN Meds (8):APAP/butalbital/caffeine (Fioricet), Insulin regular, Insulin regular, Insulin regular, Insulin regular, Insulin regular, acetaminophen (Tylenol), sodium chloride (Saline Flush 0.9%) One Time Meds (1):(Completed) topiramate (Topamax) Continuous Infusions: None Objective: Vitals: VitalsTmp(F)[id number] 07/31 12:[id number]--- 07/31 08:[id number]--- 07/31 03:[id number]--- 07/30 23:[id number]--- 07/30 19:[id number]--- 24 Hr Tmax: 98.4F (36.89c) at 07/30 16:40Vital Signs are the last 5 in the past 48 hours. Physical Exam: HEAD - Normocephalic and atraumatic LUNGS - Clear to auscultation, no rales or rhonchi CVS - Rate rhythm regular, no murmur, equal pulses bilaterally ABDOMEN - Soft, non tender, with normal bowel sounds. No hepatosplenomegaly NEUROLOGY: AAO*3 Speech: fluent, comprehension intact, repetition and naming intact electrician helper powerhouse: 2-12 intact Motor: Tone: Normal Power: 5/5 in all groups of muscles in all four limbs Reflexes: 2+ symmetrical bilaterally Plantar: Flexor Drift: absent Sensory: Intact light touch and pin prick sensation Intact vibration and position sense Cerebellar signs: Intact FNT, Rombergs negative Gait: normal Labs: Labs (Last four charted values) WBC 5.9(JUL 15)7.6(JUL 14)7.9(JUL 29) Hgb 13.2(JUL 15)13.1(JUL 14)13.0(JUL 29) Hct 39.2(JUL 15)38.7(JUL 14)37.5(JUL 13) Plt 245(JUL 15)254(JUL 14)263(JUL 29) Na 139(JUL 15)143(JUL 14)142(JUL 29) K 4.1(JUL 15)3.8(JUL 14)3.9(JUL 29) CO2 L 21(JUL 15)29(JUL 14)30(JUL 29) Cl 108(JUL 15)107(JUL 14)105(JUL 29) Cr 0.75(JUL 15)0.64(JUL 14)0.92(JUL 29) BUN 14(JUL 15)13(JUL 14)15(JUL 29) Glucose Random H 108(JUL 15)97(JUL 14)H 106(JUL 14)97(JUL 29) Mg H 2.6(JUL 15) Phos H 4.7(JUL 15) Ca 8.7(JUL 15)8.9(JUL 14)8.6(JUL 29) PT 13.5(JUL 30) INR 1.01(JUL 30) PTT 29.4(JUL 30) Diagnostic Work Up : MRI L-Spine 1. Disc herniation on the left at L4-L5 displacing the traversing L5 nerve root. 2. Early disc degenerative change at L5-S1. The annular fissure present at this level can be an additional source of low back pain. LP Opening pressure 23mm Assessment: This is a 35 yo F with a hx of pseudotumor cerebri since 2009 who presents with MUNIZ and blurry vision in the left eye. Plan: #Headache - Possible exacerbtion of increased intracranial hypertension - LP with normal opening pressure - inceased Diamox to 750mg - started topamax 25 daily - MUNIZ well controlled #Low back pain - s/p Fall 3 weeks ago - worsening left sided weakness since fall - MRI L-spine with L4-5 disc herniation - Ortho consulted, appreciate recs - No surgical intervention PPX - SQ Heparin Diet Regular Adult Dispo: Discharge Home Ian Adam PGY-2, Neurology [facility] Pager # [phone] Addendum Neurology Attending by Angela, -Topamax to help migraine prevention and wt lost Bladimir - increase patient Gabapentin for pain control Ceasar BERMEO - Continue Diamox on The patient was seen and examined by me with the resident and I agree with the 08/01/2016 History/Exam documented. 21:49 Bladimir Miller MD
[2018-07-19 16:07] VITALS: BP 128/85
[2018-07-19] MEDS ORDERED: ASPIRIN 81 MG CHEW TAB PO ONE (16:15)
[2018-07-19] MEDS ORDERED: MORPHINE SULFATE 2 MG/ML SYR 1ML IV PRN (16:30)
[2018-07-19 16:38] VITALS: BP 128/85
--- NOTE | 2018-07-19 17:02 | NUR ---
Recvd patient as direct admit from Dr Freeman's office, assisted her to bed, c/o chest hurting intermittently, no SOB, Skin intact, call light in reach,
[2018-07-19] MEDS: MORPHINE SULFATE INJ 4 MG/ML INJ 1ML IV PRN (17:05)
[2018-07-19 17:22] LABS: BASOPHILS % 0.1 % (0.0-1.0); EOSINOPHILS # (AUTO) 0.3 (0.0-0.4); EOSINOPHILS % 2.4 % (0.0-6.0); HEMATOCRIT 38.1 % (34.2-44.1); HEMOGLOBIN 12.8 g/dL (12.0-16.0); MEAN CORPUSCULAR HEMOGLOBIN 31.7 pg (28-32); MEAN CORPUSCULAR HGB CONC 33.6 g/dL (31-35); MEAN CORPUSCULAR VOLUME 94.3 fL (81-99); MONOCYTES # (AUTO) 0.6 (0.2-0.8); MONOCYTES % 5.2 % (4.4-11.3); NEUTROPHILS # (AUTO) 9.2 (2.1-6.9); NEUTROPHILS % 82.9 % (38.7-80.0); PLATELET COUNT 259 x10e3/uL (140-360); RED BLOOD COUNT 4.04 x10e6/uL (3.6-5.1); RED CELL DISTRIBUTION WIDTH 12.9 % (11.7-14.4)
[2018-07-19 17:44] LABS: ALANINE AMINOTRANSFERASE 40 IU/L (0-55); ALBUMIN 3.3 g/dL (3.5-5.0); ALKALINE PHOSPHATASE 108 IU/L (40-150); ANION GAP 11.3 mmol/L (8-16); BLOOD UREA NITROGEN 11 mg/dL (7-26); BUN/CREATININE RATIO 16 (6-25); CALCIUM 8.7 mg/dL (8.4-10.2); CARBON DIOXIDE 27 mmol/L (22-29); CHLORIDE 104 mmol/L (98-107); CREATINE KINASE 75 IU/L (29-168); CREATININE, SERUM 0.69 mg/dL (0.57-1.11); EST GLOMERULAR FILTRATION RATE > 60 ML/MIN (60-); GLUCOSE 110 mg/dL (74-118); POTASSIUM 3.3 mmol/L (3.5-5.1); SODIUM 139 mmol/L (136-145)
[2018-07-19 18:05] LABS: THYROID STIMULATING HORMONE 0.715 uIU/mL (0.350-4.940)
[2018-07-19] MEDS ORDERED: ENOXAPARIN INJ 80 MG/0.8 ML SYR SC STA ×2 (18:33→23:25)
--- NOTE | 2018-07-19 19:00 | NUR ---
received report from day nurse. patient is resting comfortably in bed. bed is in lowest position and call medellin is within reach.
[2018-07-19] MEDS ORDERED: SODIUM CHLORIDE 0.9% 50ML 50 ML ONE (19:39)
[2018-07-19] MEDS ORDERED: IOPAMIDOL 370 MG/ML 200 ML INFUS..BTL INJ ONE (19:39)
--- NOTE | 2018-07-19 19:40 | Diagnostic Imaging Report ---
EXAM: CT Chest WITH contrast (PE Protocol) INDICATION: Chest pain. Shortness of breath. ^chest pain ^[id number] ^1906 COMPARISON: None TECHNIQUE: Chest was scanned utilizing a multidetector helical scanner from the lung apex through the level of the diaphragm after administration of IV contrast. Thin section reconstructions were obtained with special concentration on the pulmonary arteries. Coronal and sagittal reformations were obtained. Pulmonary embolism protocol was performed. IV CONTRAST: 100 mL of Isovue-370 COMPLICATIONS: None RADIATION DOSE: Total DLP: 549.47 mGy*cm Estimated effective dose: (DLP x 0.014 x size factor) mSv CTDIvol has been reviewed. It is below the limits set by the Radiation Protocol Committee (RPC). Dose modulation, iterative reconstruction, and/or weight based adjustment of the mA/kV was utilized to reduce the radiation dose to as low as reasonably achievable. FINDINGS: LINES/ TUBES: None. LUNGS AND AIRWAYS: Numerous scattered pulmonary emboli are seen. This is best seen on series 2 image 44 in the posterior left lung and series 2 image 53 in the posterior mid right lung. Innumerable ill-defined groundglass nodular densities scattered diffusely throughout the lungs could be due to pulmonary infarcts or possibly multifocal pneumonia in the appropriate clinical setting. Malignancy is thought to be less likely. Airways are normal. PLEURA: The pleural spaces are clear. HEART AND MEDIASTINUM: The thyroid gland is normal. Prominent mediastinal lymph nodes are seen. The heart is normal in size. There is no pericardial effusion. . Main pulmonary artery measures 3.9 cm in diameter and the ascending aorta measures 3.1 cm. UPPER ABDOMEN: Unremarkable BONES: The visualized bony thorax is within normal limits. SOFT TISSUES: Unremarkable. IMPRESSION: Numerous scattered pulmonary emboli are seen. This is best seen on series 2 image 44 in the posterior left lung and series 2 image 53 in the posterior mid right lung. Innumerable ill-defined groundglass nodular densities scattered diffusely throughout the lungs could be due to pulmonary infarcts or possibly multifocal pneumonia in the appropriate clinical setting. Malignancy is thought to be less likely. Follow-up imaging is indicated to document clearing. Findings discussed with the nurse Adriel, taking care of the patient by Dr. Jiménez on July 19, 2018 at 7:30 PM Signed by: Dr. Alcides Jiménez M.D. on 07/19/2018 7:36 PM
[2018-07-19] MEDS: ALBUTEROL SULF 0.083% NEB SOLN 3 ML NEB NEB SCH (19:45)
[2018-07-19 20:00] VITALS: BP 100/62
[2018-07-19 20:31] VITALS: BP 100/62
[2018-07-19] MEDS ORDERED: SODIUM CHLORIDE 0.9% 250ML 250 ML ONE (22:37)
[2018-07-19] MEDS: CEFTRIAXONE SOD 1 GM/NS 50 ML 50 ML IV SCH (23:03)
[2018-07-19] MEDS: AZITHROMYCIN 500MG/NS 250 ML 250 ML IV SCH (23:36)
[2018-07-20] VITALS (14 sets, daily range): BP systolic 93–138; BP diastolic 52–91
--- NOTE | 2018-07-20 01:41 | History and Physical ---
REASON FOR ADMISSION: The patient comes in with acute shortness of breath and chest pain. HISTORY OF PRESENT ILLNESS: Ms. Christy Rhodes is a 37-year-old morbidly obese lady with a history of benign intracranial hypertension, was in usual state of health until she started with chest pain yesterday last night, and the patient proceeded with chest pain and shortness of breath in the morning, felt like anterior chest pressure, nonradiating, and exacerbated with movement and also with shortness of breath. PAST MEDICAL HISTORY: 1. History of benign intracranial hypertension. 2. Obesity. 3. Remote history of hypertension, which she stopped taking the medication. MEDICATIONS: At home are Diamox 250 mg two tablets twice a day, but she has stopped taking it in about three months duration. ALLERGIES: NO KNOWN ALLERGIES. REVIEW OF SYSTEMS: Positive for chest pain, positive for shortness of breath. Positive for nausea. No vomiting. No diarrhea. No constipation. No rectal bleeding. No hematochezia. No hematemesis. No diplopia. No blurry vision. No other neurological findings. FAMILY HISTORY: Positive for diabetes and positive for hypertension. PHYSICAL EXAMINATION: GENERAL: The patient is alert and oriented x3. VITAL SIGNS: Temperature is 98.8, blood pressure 128/85, respirations of 21, pulse of 87, pulse oximetry of 97% on 2 L of oxygen. HEENT: Normocephalic, atraumatic. Pupils are reactive to light and accommodation. CVS: S1, S2 distant. Regular rate and rhythm. ABDOMEN: Nontender and nondistended. LUNGS: Decreased air entry in all lung ford. EXTREMITIES: No clubbing, no cyanosis, and trace edema present. LABORATORY VALUES: Initial white count 7000 with left shift, neutrophil count of 82.9. Coags, D-dimer was 1.23. Chemistries show sodium 139, potassium is 3.3, BUN of 11, creatinine 0.69. ALT and AST 40 and 39, and TSH is 0.75. IMAGING: Pending CT of the lungs, PE protocol. ASSESSMENT AND PLAN: 1. Chest pain. Plan is to rule out acute pulmonary embolism. CT of the chest has been ordered pending images. The patient's D-dimer has been elevated. 2. Leukocytosis with possible lower respiratory tract infection. We will start the patient on IV antibiotics. Rocephin and Zithromax will be continued. Blood cultures have been ordered and the patient will be put on Lovenox. 3. Shortness of breath. Again, CT scan will be ordered and for chest pain the patient will have serial cardiac enzymes. The patient is kept in observation. The Cardiology consult has been done to with Dr. Bañuelos for further recommendation and clinical course. We will continue to monitor the patient in the hospital and possible discharge if findings are normal by tomorrow. MD MICHELLE Vanessa/MODL /[id number]
[2018-07-20] MEDS: ALBUTEROL SULF 0.083% NEB SOLN 3 ML NEB NEB SCH ×4 (01:45→20:10)
[2018-07-20] MEDS: CEFTRIAXONE SOD 1 GM/NS 50 ML 50 ML IV SCH ×2 (05:42→17:35)
[2018-07-20 05:48] LABS: BASOPHILS % 0.1 % (0.0-1.0); EOSINOPHILS # (AUTO) 0.3 (0.0-0.4); EOSINOPHILS % 3.6 % (0.0-6.0); HEMATOCRIT 37.6 % (34.2-44.1); HEMOGLOBIN 12.5 g/dL (12.0-16.0); LYMPHOCYTES # (AUTO) 1.8 (1.0-3.2); LYMPHOCYTES % 18.7 % (18.0-39.1); MEAN CORPUSCULAR HEMOGLOBIN 31.3 pg (28-32); MEAN CORPUSCULAR HGB CONC 33.2 g/dL (31-35); MONOCYTES # (AUTO) 0.6 (0.2-0.8); NEUTROPHILS # (AUTO) 6.8 (2.1-6.9); NEUTROPHILS % 71.3 % (38.7-80.0); PLATELET COUNT 253 x10e3/uL (140-360); RED CELL DISTRIBUTION WIDTH 12.9 % (11.7-14.4)
[2018-07-20 05:57] LABS: ANION GAP 10.6 mmol/L (8-16); BLOOD UREA NITROGEN 9 mg/dL (7-26); BUN/CREATININE RATIO 14 (6-25); CALCIUM 8.4 mg/dL (8.4-10.2); CARBON DIOXIDE 26 mmol/L (22-29); CHLORIDE 104 mmol/L (98-107); CREATININE, SERUM 0.65 mg/dL (0.57-1.11); EST GLOMERULAR FILTRATION RATE > 60 ML/MIN (60-); GLUCOSE 115 mg/dL (74-118); POTASSIUM 3.6 mmol/L (3.5-5.1); SODIUM 137 mmol/L (136-145)
--- NOTE | 2018-07-20 06:00 | NUR ---
in building rounding on patient. MD has seen patients CT results and has placed new orders.
--- NOTE | 2018-07-20 06:53 | NUR ---
report given to day nurse. patient is resting comfortably in bed. bed is in lowest position and call medellin is within reach
[2018-07-20] MEDS: MORPHINE SULFATE INJ 4 MG/ML INJ 1ML IV PRN (07:32)
[2018-07-20] MEDS ORDERED: ENOXAPARIN SODIUM INJ 100 MG/ML SYR SC SCH (09:00)
--- NOTE | 2018-07-20 10:19 | Progress Note ---
DATE: 07/20/2018 SUBJECTIVE: The patient was admitted directly for acute shortness of breath. The patient had a D-dimer elevated. CT scan ordered. The patient was found to have multiple showered emboli in the lungs. The patient is currently getting Lovenox. We will increase Lovenox to 100 mg b.i.d. Currently, she is still complaining of some shortness of breath. Chest pain has dissipated. OBJECTIVE: VITAL SIGNS: Temperature is 99.1, blood pressure is 98/55, and pulse oximetry of 95% on 2 L of oxygen. HEENT: Normocephalic and atraumatic. Pupils are reactive to light and accommodation. CVS: S1 and S2 normal. Regular rate and rhythm. LUNGS: Decreased air entry into bilateral lung ford. EXTREMITIES: No clubbing, no cyanosis, and no edema. IMAGING STUDIES: CT of the chest shows numerous scattered pulmonary emboli and innumerable ill-defined ground glass nodular densities scattered diffusely throughout the lung, could be due to pulmonary infarcts. LABORATORY VALUES: From today, white count is 9.5, hemoglobin of 12.5, hematocrit 37.6. Left shift has dissipated. MICROBIOLOGY: Blood cultures are pending at this time. The echocardiogram is pending and cardiology consult is on the schedule. ASSESSMENT: 1. Acute shortness of breath. 2. Pulmonary embolism. 3. History of benign intraocular hypertension. PLAN: Plan is to increase the Lovenox to 100 mg twice a day. Cardiology consult on-call. Thrombophilia panel ordered, echocardiogram ordered, and also bilateral lower venous extremity Dopplers are also ordered. Further recommendation per the clinical course. The patient has been counseled on the findings and is agreeable to the plan. Continue with monitoring the patient and continuous pulse oximetry will be monitored and follow the patient along with consultants. MD MICHELLE Vanessa/MODL /[id number]
--- NOTE | 2018-07-20 12:25 | NUR ---
SOCIAL WORK INITIAL ASSESSMENT Loss Prevention Auditor to bedside to discuss plan of care with patient/family. CM/SW role and care transitions discussed. Anticipated discharge plan discussed along with duration of care. CM/SW discussed patients right to make decisions in care. CM/SW work hours given. Patient lives: IN [facility] STORY HOME WITH FAMILY Admit/Transfer: VIA ED POA/Emergency contact: NATALIA [phone] Current/Previous Home Health: NONE PCP/Follow-up Care: [facility] Current/Previous DME: NONE Other Services: NONE Employment Status: ADMINISTRATION Areas of Concerns: NONE Referral Needs: NONE Education Needs: NONE IMM/LUNDBERG given and signed (if applicable): NA Goal for discharge: RETURN HOME WITH NO NEEDS CM/SW left business card at the bedside with contact information. Name and number was also written on the patients whiteboard. Patient verbalized understanding of discussion. CM will follow-up with ongoing discharge and transition of care needs.
--- NOTE | 2018-07-20 14:34 | Consultation ---
DATE OF CONSULTATION: 07/20/2018 REASON FOR CONSULTATION: Chest pain. HISTORY OF PRESENT ILLNESS: This is a pleasant 37-year-old female, who presented with chest pain. According to the patient, for the last 2-3 weeks, she has been having chest pain accompanied with shortness of breath that she decided to see her PCP. She denied any palpitation, any diaphoresis, any headache, nausea, or vomiting. 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 She had a D-dimer done that was positive and she had a CT chest done that showed numerous scattered pulmonary emboli. Troponin x1 was negative. PAST MEDICAL HISTORY: Benign intracranial hypertension, she was treated with Diamox; obesity; anxiety; depression; migraine headache. PAST SURGICAL HISTORY: , hysterectomy, appendectomy, cyst removal from the ovary, and tonsillectomy. FAMILY HISTORY: Positive for diabetes and hypertension. SOCIAL HISTORY: No smoking, no drinking. 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 MEDICATIONS: She was not on any medication. ALLERGIES: SHE IS NOT ALLERGIC TO ANY MEDICATION. REVIEW OF SYSTEMS: Negative except those mentioned above. PHYSICAL EXAMINATION: VITAL SIGNS: Temperature 99, heart rate 72, blood pressure 98/56, respirations 17, oxygen saturation 96% on 2 L nasal cannula. GENERAL: She is awake, alert, and oriented x3. HEENT: Mucous membranes moist. NECK: Supple. LUNGS: Bilateral with decreased breath sounds. CARDIOVASCULAR: S1, S2 present. ABDOMEN: Soft. NEUROLOGICAL: Intact. EXTREMITIES: With no edema. LABS: Sodium 137, potassium 3.6, chloride 104, CO2 of 26, BUN 9, creatinine 0.66, glucose 115. White blood cell 9.57, hemoglobin 12.5, hematocrit 37.6, platelet 253. IMPRESSION: 1. Chest pain. 2. Positive D-dimer. 3. Obesity. 4. Pulmonary emboli. PLAN: 1. We will put her on Lovenox b.i.d. and slowly transition her to p.o. anticoagulation before discharge. 2. We will get bilateral lower extremity venous Doppler to rule out DVT. 3. She is pending an echo to assess the LV and the valve function. 4. We will get serial cardiac enzymes and get an EKG. Further cardiac workup pending clinical course. Thank you for this consultation. Dictated by John Luna, CASTING SUPERVISOR MD CIERRA Hdz/BANDAR /[id number]
--- NOTE | 2018-07-20 16:49 | NUR ---
patient resting in bed, c/o chest hurting and posterior neck pain, but denies any pain medicine, not in any distress or SOB, KEEP MONITORING
--- NOTE | 2018-07-20 18:20 | NUR ---
On rounds patient still c/o chest hurting during breathing and c/o coughing . Not in any acute distress , spo2 -96% on RA . Notified Dr Freeman, new consult Dr Leonard for PE, Keep monitoring. endorsed to next shift
[2018-07-20] MEDS: AZITHROMYCIN 500MG/NS 250 ML 250 ML IV SCH (18:48)
[2018-07-20] MEDS ORDERED: HEPARIN SOD (PORCINE) 5,000 UNIT/ML VIAL IV ONE (19:30)
[2018-07-20 20:24] LABS: BASOPHILS % 0.2 % (0.0-1.0); EOSINOPHILS # (AUTO) 0.3 (0.0-0.4); EOSINOPHILS % 3.9 % (0.0-6.0); HEMATOCRIT 38.7 % (34.2-44.1); HEMOGLOBIN 12.8 g/dL (12.0-16.0); LYMPHOCYTES # (AUTO) 1.2 (1.0-3.2); MEAN CORPUSCULAR HEMOGLOBIN 31.3 pg (28-32); MEAN CORPUSCULAR HGB CONC 33.1 g/dL (31-35); MEAN CORPUSCULAR VOLUME 94.6 fL (81-99); MONOCYTES # (AUTO) 0.5 (0.2-0.8); MONOCYTES % 5.5 % (4.4-11.3); NEUTROPHILS # (AUTO) 6.7 (2.1-6.9); NEUTROPHILS % 76.1 % (38.7-80.0); PLATELET COUNT 249 x10e3/uL (140-360); RED BLOOD COUNT 4.09 x10e6/uL (3.6-5.1); RED CELL DISTRIBUTION WIDTH 12.9 % (11.7-14.4)
--- NOTE | 2018-07-20 20:30 | NUR ---
Received to 191 from Obs unit. Placed on EKG, pulse ox & NBP for monitoring.
[2018-07-20 20:33] LABS: INR 0.96; PROTHROMBIN TIME 13.3 seconds (11.9-14.5)
[2018-07-20] MEDS: HEPARIN 25,000U/0.45% NS 250ML 1,500 UNIT in Premix Bag 250 ML IV SCH (21:39)
[2018-07-21] VITALS (24 sets, daily range): BP systolic 98–165; BP diastolic 51–88
[2018-07-21] MEDS: ALBUTEROL SULF 0.083% NEB SOLN 3 ML NEB NEB SCH ×4 (01:08→19:25)
--- NOTE | 2018-07-21 03:22 | Consultation ---
DATE OF CONSULTATION: 07/20/2018 Pulmonary Critical Care consultation. REASON FOR THE CONSULTATION: Pulmonary embolism. CHIEF COMPLAINT: Shortness of breath. HISTORY OF PRESENT ILLNESS: Ms. Rhodes is a 37-year-old female with pseudotumor cerebri, presented with shortness of breath, found to have pulmonary embolism and became increasingly short of breath and hence pulmonary consultation was called. CT of the chest is reported as numerous scattered pulmonary emboli and innumerable ill-defined ground-glass densities scattered throughout the lungs. The patient is complaining of chest pain and shortness of breath and she is unable to complete sentence. REVIEW OF SYSTEMS: GENERAL: Denies any fever, chills. HEAD: Denies any head trauma. ENT: Denies any earaches. CVS: Chest pain, shortness of breath. RESPIRATORY: Shortness of breath. GI: Denies any nausea, vomiting. The rest of the review of systems are negative except as in HPI. PAST MEDICAL HISTORY: Pseudotumor cerebri. SOCIAL HISTORY: She does not smoke. Does not drink. PHYSICAL EXAMINATION: VITAL SIGNS: Temperature is 97, pulse of 92, blood pressure is 132/72, respiratory rate of 18, and O2 saturation is 90% of room air. HEENT: Head is atraumatic, normocephalic. NECK: Supple. CHEST: Pain on taking deep breath, otherwise clear. HEART: S1, S2 audible. ABDOMEN: Soft, nontender. EXTREMITIES: No pedal edema. NEUROLOGIC: Awake and alert. LABORATORY DATA: White count of 8000, hemoglobin 12.8, and platelets 249. Chemistry is within normal limits. INR is 0.93. CT chest shows innumerable small clots. ASSESSMENT/PLAN: Ms. Rhodes is a 37-year-old female with shortness of breath and multiple pulmonary nodules with multiple pulmonary embolism. Etiology is not very clear. 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 RECOMMENDATIONS: Continue the patient on heparin. Observe in ICU. Currently, the patient is not in circulatory shock and will not need tPA. Multiple lung nodules are very concerned that either they are pulmonary infarcts versus infectious, unlikely that it is infectious because there are multiple clots in almost same distribution. MD CHANDA Barroso/BANDAR /[id number]
--- NOTE | 2018-07-21 06:10 | NUR ---
PTT 140.5. Heparin held x 60 min.
[2018-07-21] MEDS: CEFTRIAXONE SOD 1 GM/NS 50 ML 50 ML IV SCH ×2 (06:33→18:06)
[2018-07-21 07:00] LABS: BASOPHILS % 0.1 % (0.0-1.0); EOSINOPHILS # (AUTO) 0.4 (0.0-0.4); HEMATOCRIT 39.5 % (34.2-44.1); HEMOGLOBIN 12.9 g/dL (12.0-16.0); LYMPHOCYTES % 24.6 % (18.0-39.1); MEAN CORPUSCULAR HEMOGLOBIN 31.4 pg (28-32); MEAN CORPUSCULAR HGB CONC 32.7 g/dL (31-35); MEAN CORPUSCULAR VOLUME 96.1 fL (81-99); MONOCYTES # (AUTO) 0.5 (0.2-0.8); MONOCYTES % 6.3 % (4.4-11.3); NEUTROPHILS # (AUTO) 5.1 (2.1-6.9); NEUTROPHILS % 63.6 % (38.7-80.0); PLATELET COUNT 261 x10e3/uL (140-360); RED BLOOD COUNT 4.11 x10e6/uL (3.6-5.1); RED CELL DISTRIBUTION WIDTH 12.9 % (11.7-14.4)
--- NOTE | 2018-07-21 07:28 | Progress Note ---
DATE: 07/21/2018 SUBJECTIVE: The patient is here for acute pulmonary embolism and shortness of breath. Last night, the patient's shortness of breath was intense and got more intense and the patient was transferred to the ICU, switched to heparin drip and the patient is on heparin protocol for PE at this time. Heparin has been held for higher PTT rate as of now. Asymptomatic, did sleep well yesterday. The patient, however, was short of breath when oxygen was taken out from the nasal cannula. OBJECTIVE: VITAL SIGNS: Temperature is 97.6, pulse of 83, respirations of 20, blood pressure is 135/76, pulse oximetry of 98% on O2 of 2 L. HEENT: Normocephalic and atraumatic. Pupils are reactive to light and accommodation. CVS: S1 and S2. Regular rate and rhythm. ABDOMEN: Nontender and nondistended. LUNGS: Positive for decreased air entry into all lung ford. EXTREMITIES: No clubbing, no cyanosis, and no edema. LABORATORY DATA: Other reports; echocardiogram, 60% to 65% EF. No evidence of aortic regurgitation. No mitral regurgitation. Left ventricle size was normal. Bilateral venous Dopplers were negative too. PLAN: The patient will be continued in ICU at this time with a heparin drip. 1. Plan is to do a CT of the abdomen and pelvis to delineate any hypercoagulable states including malignancies. 2. If this is negative, a possible VANDANA to rule out endocardial lesions will be also done. We will also start the patient back on warfarin at 5 mg for anticoagulation as an outpatient basis. Further recommendation per clinical course. The patient will stay in the ICU until the patient is stable and has stable labs. MD ERIKA VanessaJ/MODL /[id number]
--- NOTE | 2018-07-21 08:25 | NUR ---
Taken for CT Scan of abdomen and pelvis via wheelchair with ALTON Jarrett at bedside.
--- NOTE | 2018-07-21 08:39 | NUR ---
TRANSFERED TO ICU FOR PULMONARY EMBOLI AND RESP DISTRESS
--- NOTE | 2018-07-21 09:01 | Diagnostic Imaging Report ---
CT of the abdomen and pelvis, with contrast, 07/21/2018. History: PE, concern for malignancy. Comparison: CT chest 07/19/2018. Technique: Multidetector CT scanning of the abdomen and pelvis was performed from the level of the lung bases to the inferior pubic rami after intravenous administration of contrast. No oral contrast was administered. Coronal and sagittal multiplanar reformations were obtained. RADIATION DOSE: Total DLP: 974 mGy*cm Dose modulation, iterative reconstruction, and/or weight based adjustment of the mA/kV was utilized to reduce the radiation dose to as low as reasonably achievable. Discussion: LUNG BASES: Cardiomegaly, pulmonary enlargement, and bibasilar consolidation are grossly unchanged. ABDOMEN: Gallstones are present. There is no gallbladder wall thickening. The liver, biliary tree, spleen, pancreas, adrenal glands, and kidneys are normal. The hepatic vein, portal vein, and splenic vein are patent. The abdominal aorta is within normal limits for size. A retroaortic left renal vein is present. Evaluation of bowel is limited without oral contrast. There is no bowel dilatation. There is no evidence of adenopathy or free fluid. A small fat-containing umbilical hernia is present. Subcutaneous injection is noted in the left anterior abdomen. PELVIS: The bladder is mildly distended. The uterus and adnexa are not visualized. There is no evidence of free fluid or adenopathy. BONES AND SOFT TISSUES: Degenerative changes are present throughout the lumbar spine without evidence of lytic or sclerotic lesion. IMPRESSION: 1. Cholelithiasis. 2. Small fat-containing umbilical hernia. 3. Status post hysterectomy. 4. Stable pulmonary findings. Otherwise unremarkable CT of the abdomen and pelvis. Signed by: Lemuel Quinonez on 07/21/2018 8:57 AM
--- NOTE | 2018-07-21 12:30 | NUR ---
PTT RESULT WAS 61.9 AND HEPARIN DRIP WILL REMAIN THE SAME AT 1300U/HR= 13CC/HR. NEXT PTT DUE AT 18:00 TODAY.
[2018-07-21] MEDS ORDERED: IOPAMIDOL 370 MG/ML 200 ML INFUS..BTL INJ ONE (14:08)
[2018-07-21] MEDS ORDERED: SODIUM CHLORIDE 0.9% 50ML 50 ML ONE (14:08)
[2018-07-21] MEDS: WARFARIN SOD 3 MG TAB PO SCH (17:14)
[2018-07-21] MEDS: HEPARIN 25,000U/0.45% NS 250ML 1,500 UNIT in Premix Bag 250 ML IV SCH (19:00)
--- NOTE | 2018-07-21 19:30 | NUR ---
PTT remains therapeutic (66.3). No changes made to heparin rate. Heparin infusion remains at 1300 un/hr or 13 mL/hr.
[2018-07-21] MEDS: AZITHROMYCIN 500MG/NS 250 ML 250 ML IV SCH (20:30)
[2018-07-22] VITALS (24 sets, daily range): BP systolic 97–134; BP diastolic 54–92
[2018-07-22] MEDS: ALBUTEROL SULF 0.083% NEB SOLN 3 ML NEB NEB SCH ×4 (00:30→18:50)
[2018-07-22 05:33] LABS: BASOPHILS % 0.3 % (0.0-1.0); EOSINOPHILS # (AUTO) 0.5 (0.0-0.4); EOSINOPHILS % 7.1 % (0.0-6.0); HEMATOCRIT 37.4 % (34.2-44.1); HEMOGLOBIN 12.3 g/dL (12.0-16.0); LYMPHOCYTES % 27.3 % (18.0-39.1); MEAN CORPUSCULAR HEMOGLOBIN 31.5 pg (28-32); MEAN CORPUSCULAR HGB CONC 32.9 g/dL (31-35); MEAN CORPUSCULAR VOLUME 95.9 fL (81-99); MONOCYTES # (AUTO) 0.5 (0.2-0.8); MONOCYTES % 6.7 % (4.4-11.3); NEUTROPHILS # (AUTO) 4.3 (2.1-6.9); NEUTROPHILS % 58.2 % (38.7-80.0); PLATELET COUNT 265 x10e3/uL (140-360); RED CELL DISTRIBUTION WIDTH 12.9 % (11.7-14.4)
[2018-07-22 05:58] LABS: INR 0.91; PROTHROMBIN TIME 12.7 seconds (11.9-14.5)
[2018-07-22 06:01] LABS: ANION GAP 12.9 mmol/L (8-16); BLOOD UREA NITROGEN 11 mg/dL (7-26); BUN/CREATININE RATIO 17 (6-25); CALCIUM 8.8 mg/dL (8.4-10.2); CARBON DIOXIDE 26 mmol/L (22-29); CHLORIDE 104 mmol/L (98-107); CREATININE, SERUM 0.64 mg/dL (0.57-1.11); EST GLOMERULAR FILTRATION RATE > 60 ML/MIN (60-); GLUCOSE 98 mg/dL (74-118); POTASSIUM 3.9 mmol/L (3.5-5.1); SODIUM 139 mmol/L (136-145)
[2018-07-22] MEDS: CEFTRIAXONE SOD 1 GM/NS 50 ML 50 ML IV SCH ×2 (06:38→18:30)
--- NOTE | 2018-07-22 10:03 | Diagnostic Imaging Report ---
EXAMINATION: CHEST SINGLE (PORTABLE) INDICATION: Increased coughing F/U COMPARISON: None. A CT chest dated 07/19/2018. FINDINGS: TUBES and LINES: None. LUNGS: Bilateral hypoinflation. Ill-defined patchy/nodular densities scattered throughout the lungs bilaterally, particularly in the lung bases. PLEURA: No pleural effusion or pneumothorax. HEART AND MEDIASTINUM: The cardiomediastinal silhouette is unremarkable. BONES AND SOFT TISSUES: No acute osseous lesion. Soft tissues are unremarkable. UPPER ABDOMEN: No free air under the diaphragm. IMPRESSION: Allowing for technical differences, no significant interval change in bilateral ill-defined pulmonary nodules, and bibasilar subsegmental atelectasis; Findings may reflect a combination of septic emboli, infectious, and inflammatory etiology. Less likely neoplastic etiology. Recommend continued follow-up to resolution. Signed by: Dr. Linwood Live M.D. on 07/22/2018 9:59 AM
[2018-07-22] MEDS: PREDNISONE 20 MG TAB PO SCH (11:59)
[2018-07-22] MEDS: MORPHINE SULFATE INJ 4 MG/ML INJ 1ML IV PRN (14:59)
[2018-07-22] MEDS ORDERED: METHYLPREDNISOLONE SOD SUCC 40 MG/ML VIAL 1ML IV NR (15:00)
[2018-07-22] MEDS: WARFARIN SOD 3 MG TAB PO SCH (17:17)
[2018-07-22] MEDS: AZITHROMYCIN 500MG/NS 250 ML 250 ML IV SCH (18:30)
--- NOTE | 2018-07-22 19:00 | NUR ---
Heparin gtt infusing at 1300 un/hr or 13 mL/hr per protocol. PTT to be drawn at 0500 4/7 per protocol.
[2018-07-22] MEDS: HEPARIN 25,000U/0.45% NS 250ML 1,500 UNIT in Premix Bag 250 ML IV SCH (19:30)
[2018-07-22] MEDS ORDERED: MORPHINE SULFATE INJ 4 MG/ML INJ 1ML IV NR (19:30)
[2018-07-22] MEDS ORDERED: ASPIRIN 81 MG CHEW TAB PO ONE (19:30)
[2018-07-22 20:42] LABS: CREATINE KINASE MB 0.5 ng/mL (0-5.0)
[2018-07-22] MEDS ORDERED: KETOROLAC TROMETHAMINE 30 MG/ML VIAL IV ONE (23:15)
[2018-07-23] VITALS (26 sets, daily range): BP systolic 89–138; BP diastolic 57–95
[2018-07-23] MEDS: ALBUTEROL SULF 0.083% NEB SOLN 3 ML NEB NEB SCH ×4 (01:40→19:30)
[2018-07-23 04:02] LABS: CREATINE KINASE MB 0.5 ng/mL (0-5.0)
[2018-07-23 05:37] LABS: BASOPHILS % 0.2 % (0.0-1.0); EOSINOPHILS # (AUTO) 0.1 (0.0-0.4); EOSINOPHILS % 1.6 % (0.0-6.0); HEMATOCRIT 38.6 % (34.2-44.1); HEMOGLOBIN 12.5 g/dL (12.0-16.0); LYMPHOCYTES # (AUTO) 1.7 (1.0-3.2); LYMPHOCYTES % 20.5 % (18.0-39.1); MEAN CORPUSCULAR HEMOGLOBIN 30.7 pg (28-32); MEAN CORPUSCULAR HGB CONC 32.4 g/dL (31-35); MEAN CORPUSCULAR VOLUME 94.8 fL (81-99); MONOCYTES # (AUTO) 0.4 (0.2-0.8); MONOCYTES % 5.2 % (4.4-11.3); NEUTROPHILS # (AUTO) 5.7 (2.1-6.9); NEUTROPHILS % 71.6 % (38.7-80.0); PLATELET COUNT 290 x10e3/uL (140-360); RED BLOOD COUNT 4.07 x10e6/uL (3.6-5.1); RED CELL DISTRIBUTION WIDTH 12.5 % (11.7-14.4)
[2018-07-23] MEDS ORDERED: KETOROLAC TROMETHAMINE 30 MG/ML VIAL IV STA (06:35)
[2018-07-23] MEDS: CEFTRIAXONE SOD 1 GM/NS 50 ML 50 ML IV SCH ×2 (06:36→18:02)
--- NOTE | 2018-07-23 08:12 | NUR ---
PTT result was 62.8 and within therapeutic range and therefore no changes to Heparin drip at 1300u/hr. Next PTT will be tomorrow am.
[2018-07-23] MEDS: PREDNISONE 20 MG TAB PO SCH (09:14)
[2018-07-23 10:43] LABS: CREATINE KINASE MB 0.5 ng/mL (0-5.0)
[2018-07-23] MEDS ORDERED: PANTOPRAZOLE SOD 40 MG TABEC PO SCH (11:00)
[2018-07-23] MEDS: SUCRALFATE 1 GM/10 ML SUSP NG SCH ×3 (11:30→20:22)
[2018-07-23 11:49] LABS: INR 0.91; PROTHROMBIN TIME 12.7 seconds (11.9-14.5)
[2018-07-23] MEDS: MORPHINE SULFATE INJ 4 MG/ML INJ 1ML IV PRN ×2 (12:12→19:40)
--- NOTE | 2018-07-23 14:30 | NUR ---
Visit made by the Spiritual Care Department Pastoral Visitor, Jose Alfredo Suarez. PV provided pastoral presence, prayer, hospitality, communion, and supportive listening. Pastoral Visitor informed pt/family of the scope of Safety Supervisor Services and availability. ANU ESTRADA Permaculture Designer Spiritual Care Department O: [phone] Pager: [phone] ([phone] calling from)
[2018-07-23] MEDS: WARFARIN SOD 3 MG TAB PO SCH (17:12)
[2018-07-23] MEDS: HEPARIN 25,000U/0.45% NS 250ML 1,500 UNIT in Premix Bag 250 ML IV SCH (19:00)
--- NOTE | 2018-07-23 19:00 | NUR ---
Received patient with heparin gtt infusing at 13 mL/hr or 1300 un/hr per protocol. Repeat PTT ordered for AM.
[2018-07-24] VITALS (26 sets, daily range): BP systolic 88–141; BP diastolic 53–99
[2018-07-24] MEDS: ALBUTEROL SULF 0.083% NEB SOLN 3 ML NEB NEB SCH ×4 (01:00→19:15)
[2018-07-24] MEDS: CEFTRIAXONE SOD 1 GM/NS 50 ML 50 ML IV SCH ×2 (05:55→17:43)
--- NOTE | 2018-07-24 06:27 | Diagnostic Imaging Report ---
Examination: Single AP view of the chest. COMPARISON: July 22, 2018 INDICATION: Chest pain DISCUSSION: Lines/tubes: None. Lungs: Bilateral lower lobe consolidations. Pulmonary venous congestion. Pleura: No pleural effusion or pneumothorax. Heart and mediastinum: Prominent heart size. Bones and soft tissues: No acute bony abnormalities. IMPRESSION: 1. Stable right lower lobe consolidation and decreased left lower lobe consolidation 2. Pulmonary venous congestion Signed by: Dr. Ventura Samaniego M.D. on 07/24/2018 6:24 AM
[2018-07-24 06:44] LABS: BASOPHILS % 0.5 % (0.0-1.0); EOSINOPHILS # (AUTO) 0.4 (0.0-0.4); EOSINOPHILS % 5.8 % (0.0-6.0); HEMATOCRIT 38.4 % (34.2-44.1); HEMOGLOBIN 12.4 g/dL (12.0-16.0); LYMPHOCYTES # (AUTO) 2.6 (1.0-3.2); LYMPHOCYTES % 35.5 % (18.0-39.1); MEAN CORPUSCULAR HEMOGLOBIN 30.8 pg (28-32); MEAN CORPUSCULAR HGB CONC 32.3 g/dL (31-35); MEAN CORPUSCULAR VOLUME 95.3 fL (81-99); MONOCYTES # (AUTO) 0.4 (0.2-0.8); MONOCYTES % 5.5 % (4.4-11.3); NEUTROPHILS # (AUTO) 3.9 (2.1-6.9); NEUTROPHILS % 51.9 % (38.7-80.0); PLATELET COUNT 286 x10e3/uL (140-360); RED BLOOD COUNT 4.03 x10e6/uL (3.6-5.1); RED CELL DISTRIBUTION WIDTH 12.6 % (11.7-14.4)
[2018-07-24] MEDS: PANTOPRAZOLE 40 MG 10ML VIAL IV SCH ×3 (06:53→17:43)
[2018-07-24 07:17] LABS: ANION GAP 12.7 mmol/L (8-16); BLOOD UREA NITROGEN 16 mg/dL (7-26); BUN/CREATININE RATIO 23 (6-25); CARBON DIOXIDE 24 mmol/L (22-29); CHLORIDE 106 mmol/L (98-107); EST GLOMERULAR FILTRATION RATE > 60 ML/MIN (60-); GLUCOSE 93 mg/dL (74-118); POTASSIUM 3.7 mmol/L (3.5-5.1); SODIUM 139 mmol/L (136-145)
[2018-07-24 07:19] LABS: PROTHROMBIN TIME 13.7 seconds (11.9-14.5)
[2018-07-24] MEDS: SUCRALFATE 1 GM/10 ML SUSP NG SCH ×4 (07:30→21:51)
--- NOTE | 2018-07-24 07:40 | NUR ---
John to bedside; discussed VANDANA. Per Dr Bañuelos, plan VANDANA on 07/25/18.
--- NOTE | 2018-07-24 08:21 | NUR ---
Dr Randall to bedside. Agrees with present plan. Called Dr Freeman to report patient conversation with Dr Randall. Dr Tejinder Klein consulted and consent obtained for EGD.
--- NOTE | 2018-07-24 09:10 | Progress Note ---
DATE: 07/24/2018 SUBJECTIVE: This is a 37-year-old female, who comes in with acute pulmonary embolism. Currently, the patient complains of pain on swallowing. The pain is more epigastric and retrosternal on swallowing. The patient has been put on Protonix and is due for a swallow evaluation today. Currently, the patient also has hypoxia when getting up and also the patient jacklyn'd to 30s to 50s on sleeping. MEDICATIONS: Rocephin and Zithromax. The patient is also on morphine sulfate for pain and currently on 3 mg of warfarin with an INR of 0.91. OBJECTIVE: VITAL SIGNS: Temperature is 59, the patient has been running jacklyn all day long yesterday, respirations of 15, blood pressure is 116/75, pulse oximeter 97%, O2 on 2 L is 97%. HEENT: Normocephalic, atraumatic. Pupils are reactive to light and accommodation. CVS: S1, S2. Regular rate and rhythm. ABDOMEN: Nontender and nondistended. LUNGS: Decreased air entry into all lung ford. EXTREMITIES: No clubbing, no cyanosis, no edema. ASSESSMENT: 1. Pulmonary embolism. 2. Bradycardia. 3. Morbid obesity. 4. Hypertension. 5. Possible sleep apnea. PLAN: 1. Plan is to continue with heparin anticoagulation with warfarin has been started, bridge to be done. 2. Continue with O2 for hypoxia. 3. Possible VANDANA to be done to rule out endocardial lesions. 4. Continue to monitor the patient in ICU at this time, possible transfer from ICU soon depending on the patient's clinical status. 5. Nutrition stable. 6. Reflux esophagitis with possible hiatal hernia, started on IV Protonix 40 mg twice a day. MD ERIKA VanessaJ/MODL /[id number]
[2018-07-24] MEDS ORDERED: WARFARIN SOD 5 MG TAB PO NR (09:15)
[2018-07-24] MEDS ORDERED: WARFARIN SOD 3 MG TAB PO SCH (17:00)
[2018-07-24] MEDS ORDERED: WARFARIN SOD 5 MG TAB PO SCH (17:00)
--- NOTE | 2018-07-24 17:18 | NUR ---
Per Tejinder Klein, coumadin to be held at this time and probable to be administered post procedure.
--- NOTE | 2018-07-24 18:35 | NUR ---
Bedside report, preop checklist reviewed. Patient to GI lab via bed.
--- NOTE | 2018-07-24 18:43 | NUR ---
Dr Tejinder Klein request cancel EGD d/t heparin gtt.
[2018-07-24] MEDS: WARFARIN SOD 5 MG TAB PO SCH (19:14)
[2018-07-24] MEDS: MORPHINE SULFATE INJ 4 MG/ML INJ 1ML IV PRN (20:23)
[2018-07-24] MEDS: HEPARIN 25,000U/0.45% NS 250ML 1,500 UNIT in Premix Bag 250 ML IV SCH (20:25)
[2018-07-25] VITALS (20 sets, daily range): BP systolic 106–125; BP diastolic 64–83
[2018-07-25] MEDS: ALBUTEROL SULF 0.083% NEB SOLN 3 ML NEB NEB SCH ×4 (00:15→19:50)
[2018-07-25 05:01] LABS: BASOPHILS % 0.5 % (0.0-1.0); EOSINOPHILS # (AUTO) 0.6 (0.0-0.4); EOSINOPHILS % 8.3 % (0.0-6.0); HEMATOCRIT 38.3 % (34.2-44.1); HEMOGLOBIN 12.6 g/dL (12.0-16.0); LYMPHOCYTES # (AUTO) 2.6 (1.0-3.2); LYMPHOCYTES % 35.1 % (18.0-39.1); MEAN CORPUSCULAR HEMOGLOBIN 31.1 pg (28-32); MEAN CORPUSCULAR HGB CONC 32.9 g/dL (31-35); MEAN CORPUSCULAR VOLUME 94.6 fL (81-99); MONOCYTES # (AUTO) 0.4 (0.2-0.8); MONOCYTES % 5.9 % (4.4-11.3); NEUTROPHILS # (AUTO) 3.7 (2.1-6.9); NEUTROPHILS % 49.5 % (38.7-80.0); PLATELET COUNT 301 x10e3/uL (140-360); RED BLOOD COUNT 4.05 x10e6/uL (3.6-5.1); RED CELL DISTRIBUTION WIDTH 12.8 % (11.7-14.4)
--- NOTE | 2018-07-25 05:29 | NUR ---
Paged Dr Bañuelos re: stopping Heparin gtt prior to VANDANA.Dr Salazar returned my page. I updated her on the situation. Orders are to continue Heparin gtt for now. Charge nurse notified.
--- NOTE | 2018-07-25 05:30 | NUR ---
Heparin gtt held for PTT of 113.0 per protocol
[2018-07-25] MEDS: CEFTRIAXONE SOD 1 GM/NS 50 ML 50 ML IV SCH ×2 (05:35→16:55)
[2018-07-25 06:24] LABS: INR 0.99; PROTHROMBIN TIME 13.6 seconds (11.9-14.5)
--- NOTE | 2018-07-25 06:39 | Progress Note ---
DATE: 07/25/2018 SUBJECTIVE: The patient is here for acute pulmonary embolisms. The patient is scheduled to have a VANDANA today. Complains of chest pain and also shortness of breath with movement. The patient is on O2 supplementation and is also on a heparin drip. OBJECTIVE: VITAL SIGNS: Temperature is afebrile, pulse of 52, respirations of 16, blood pressure is 123/74. HEENT: Normocephalic, atraumatic. Pupils are reactive to light and accommodation. CVS: S1 and S2. Regular rate and rhythm. ABDOMEN: Nontender, nondistended. EXTREMITIES: No clubbing, no cyanosis, no edema. LUNGS: Decreased air entry into all lung ford. LABORATORY DATA: The patient's chest x-ray yesterday showed stable right lower lobe consolidation, decreased left lower lobe consolidation. Chest x-ray from the day before showed no significant interval changes. The patient had labs done today, white count is 7.49, hemoglobin is 12.6, hematocrit 38.6. Chemistry; sodium 139, potassium of 3.7. Coags; pending INR today, yesterday's was 1.00. ASSESSMENT: 1. Acute pulmonary embolism. 2. Bradycardia. 3. Morbid obesity. 4. Sleep apnea. 5. Hypertension. PLAN: 1. Plan is to continue with heparin and warfarin bridge. 2. Continue on O2 for hypoxia. VANDANA today to delineate endocarditis. 3. Continue monitoring in the ICU. The patient also has reflux esophagitis. Consult with Dr. Lyndon Klein has been done, and continue on Protonix at this time. MD MICHELLE Vanessa/MODL /[id number]
[2018-07-25] MEDS: SUCRALFATE 1 GM/10 ML SUSP NG SCH ×4 (07:30→20:07)
[2018-07-25] MEDS: PANTOPRAZOLE 40 MG 10ML VIAL IV SCH (08:50)
--- NOTE | 2018-07-25 08:50 | NUR ---
ST NOTE: PT NPO for VANDANA today, spoke with ALTON Paredes, moving MBS to 07/26/18
[2018-07-25] MEDS ORDERED: SODIUM CHLORIDE 0.9% 1000ML 1,000 ML ONE (12:16)
[2018-07-25] MEDS ORDERED: BENZOCAINE 20% SPR 60 ML CAN ONE (12:16)
--- NOTE | 2018-07-25 12:25 | NUR ---
Patient to OR for VANDANA with Sarmad.
--- NOTE | 2018-07-25 13:04 | NUR ---
Patient to Room 191; spoke with Dr Bañuelos regarding results.
[2018-07-25] MEDS: PANTOPRAZOLE SOD 40 MG TABEC PO SCH ×2 (16:54→17:00)
[2018-07-25] MEDS: WARFARIN SOD 5 MG TAB PO SCH (16:55)
[2018-07-25] MEDS ORDERED: WARFARIN SOD 5 MG TAB PO NR (17:00)
[2018-07-25] MEDS ORDERED: ENOXAPARIN SODIUM INJ 100 MG/ML SYR SC SCH ×2 (17:00→22:00)
--- NOTE | 2018-07-25 17:27 | NUR ---
RD Recommendation(s) for Physician: - Pending MBSS and po safety continue GI Soft diet and recommend Ensure Enlive TID Plan of Care: RD following, monitoring for tolerance and adequacy Nutrition reason for involvement: LOS RD Assessment 07/25: 37 YOF admitted for chest pain, PE, and severe dyspnea. Pt seen today for LOS. Pt discussed during am rounds, pt continues with pulm embolisms and severe dyspnea- barely able to ambulate to bathroom. Per RN VANDANA today and pending MBSS. Pt reports recent poor intake due to her throat hurting when she swallows, severe dyspnea when she tries to eat, and intermittent nausea. Pt reports intentional 10# wt loss over the past year, states she was weighing 290# in 2017. Pt receptive to Ensure Enlive pending MBSS and results. Rec's and POC reviewed with RN. Will monitor and continue to follow. Principal Problems/Diagnoses: PE, chest pain, dyspnea PMH:benign inter-cranial HTN, obesity, HTN GI: LBM 07/24 Skin: intact Labs: 07/24: Mg 2.5 Meds: abx, coumadin, carafate, protonix Ht: 65 in Wt: 279 lb BMI: 46.4 IBW: 125 lb Malnutrition Evaluation (07/25/18) The patient does not meet criteria for a specified degree of malnutrition at this time. Will re-evaluate at follow-up as appropriate. Pt reports intentional wt loss since 2017, was weighing 290#- insignificant change noted. Nutrition Prescription (Diet Order): GI Soft Estimated Nutritional Needs: 5215-5011 calories/day (22-25 kcal/kg IBW) 85-114 g protein/day (1.5-2 g pro/kg IBW) Diet Adequacy: Not meeting calorie needs, Not meeting protein needs Diet Education Needs Assessment: Diet education not indicated, patient on temporary/transition diet. Nutrition Care Level: Mod Nutrition Diagnosis: Inadequate energy and protein intake related to current medical conditions- severe dyspnea and nausea as evidenced by poor po intake and not meeting needs. Goal: Patient will meet 75-100% of estimated needs by follow up Progress: N/A Interventions: Fiber modified diet, Commercial beverage, Collaboration with other providers Monitoring/Evaluation: Total energy intake, Total protein intake, Modified diet, Liquid supplement, Weight change Signed: Nora Wilkinson RD, LD, [facility]
--- NOTE | 2018-07-25 19:00 | NUR ---
Bedside report received from Lena Hensley RN. Pt family and at the bedside, care plan reviewed.
[2018-07-25] MEDS ORDERED: KETAMINE HCL INJ 50 MG/ML 10 ML VIAL ONE (19:34)
[2018-07-25] MEDS ORDERED: MIDAZOLAM HCL 2 MG/2 ML VIAL ONE (19:34)
[2018-07-25] MEDS ORDERED: FENTANYL CITRATE/PF 100MCG/2 ML INJ ONE (19:34)
[2018-07-25] MEDS ORDERED: HEPARIN 25000UNITS/0.45% NS 250 ML BAG IV ONE (20:04)
[2018-07-25] MEDS: HEPARIN 25,000U/0.45% NS 250ML 1,500 UNIT in Premix Bag 250 ML IV SCH (20:09)
[2018-07-26] VITALS (24 sets, daily range): BP systolic 88–139; BP diastolic 58–95
[2018-07-26] MEDS: ALBUTEROL SULF 0.083% NEB SOLN 3 ML NEB NEB SCH ×4 (01:05→20:05)
[2018-07-26] MEDS: [UNRECOGNIZED DRUG - REMARK] IV SCH (01:50)
[2018-07-26 04:56] LABS: BASOPHILS % 0.3 % (0.0-1.0); EOSINOPHILS # (AUTO) 0.4 (0.0-0.4); EOSINOPHILS % 5.8 % (0.0-6.0); HEMATOCRIT 40.4 % (34.2-44.1); HEMOGLOBIN 13.6 g/dL (12.0-16.0); LYMPHOCYTES # (AUTO) 1.6 (1.0-3.2); LYMPHOCYTES % 21.2 % (18.0-39.1); MEAN CORPUSCULAR HEMOGLOBIN 31.5 pg (28-32); MEAN CORPUSCULAR HGB CONC 33.7 g/dL (31-35); MEAN CORPUSCULAR VOLUME 93.5 fL (81-99); MONOCYTES # (AUTO) 0.4 (0.2-0.8); MONOCYTES % 5.4 % (4.4-11.3); NEUTROPHILS % 66.9 % (38.7-80.0); PLATELET COUNT 292 x10e3/uL (140-360); RED BLOOD COUNT 4.32 x10e6/uL (3.6-5.1); RED CELL DISTRIBUTION WIDTH 12.6 % (11.7-14.4)
[2018-07-26 05:11] LABS: INR 1.03
[2018-07-26 05:12] LABS: PARTIAL THROMBOPLASTIN TIME 35.5 seconds (23.8-35.5)
[2018-07-26 05:22] LABS: BLOOD UREA NITROGEN 16 mg/dL (7-26); BUN/CREATININE RATIO 21 (6-25); CALCIUM 9.2 mg/dL (8.4-10.2); CARBON DIOXIDE 25 mmol/L (22-29); CHLORIDE 102 mmol/L (98-107); CREATININE, SERUM 0.75 mg/dL (0.57-1.11); EST GLOMERULAR FILTRATION RATE > 60 ML/MIN (60-); GLUCOSE 92 mg/dL (74-118); SODIUM 137 mmol/L (136-145)
[2018-07-26] MEDS: CEFTRIAXONE SOD 1 GM/NS 50 ML 50 ML IV SCH ×2 (06:07→17:58)
[2018-07-26] MEDS: SUCRALFATE 1 GM/10 ML SUSP NG SCH ×4 (07:30→21:42)
--- NOTE | 2018-07-26 07:43 | Progress Note ---
DATE: 07/26/2018 SUBJECTIVE: The patient is here for acute pulmonary embolism. The patient does have some odynophagia and also pain on swallowing all the way down to the esophagus. Currently, otherwise continues to have some shortness of breath. The patient's heparin has been turned off for EGD today in the morning. Currently on pantoprazole, Protonix 40 mg IV twice a day. OBJECTIVE: VITAL SIGNS: Temperature is 97.8, pulse of 54, respirations of 17, blood pressure is 129/84, pulse oximetry of 98% on 3 L of oxygen. HEENT: Normocephalic, atraumatic. Pupils are reactive to light and accommodation. CVS: S1 and S2 are normal. Decreased rate. ABDOMEN: Tender in the epigastrium. EXTREMITIES: No clubbing, no cyanosis, and no edema. LABORATORY VALUES: Today's white count 7.45, hemoglobin 13.6, hematocrit of 40. Chemistry; sodium 137, potassium of 4.0. MICROBIOLOGY: No growth of blood cultures. IMAGING STUDIES: Modified barium swallow was done yesterday. No report available. Chest x-ray yesterday shows stable right lower lobe consolidation. ASSESSMENT: 1. Acute pulmonary embolism. The patient also had a VANDANA yesterday, which was normal. No source of emboli noted until now. 2. Bradycardia. 3. Morbid obesity. 4. Dysphagia and pain on swallowing. 5. Possible sleep apnea. PLAN: 1. Plan is to stop the heparin today. Anticoagulation will be held for EGD to see for any esophageal lesions. 2. Continue with oxygen for hypoxia. 3. Esophagitis. Protonix continue, and we will continue to monitor the patient in the ICU and possibly out of ICU tomorrow if EGD is normal. Further recommendation per clinical course. We will continue to monitor the patient along with the consultants. MD MICHELLE Vanessa/SHARMAINEL /[id number]
[2018-07-26] MEDS: PANTOPRAZOLE SOD 40 MG TABEC PO SCH ×2 (08:56→17:09)
--- NOTE | 2018-07-26 11:49 | Operative Report ---
DATE OF PROCEDURE: 07/26/2018 SURGEON: Lyndon Klein MD PROCEDURE: Esophagogastroduodenoscopy with biopsies and esophageal dilatation. INDICATIONS FOR EGD: Dysphagia/odynophagia. MEDICATIONS: The patient was done under MAC, please see anesthesiologist's note. PROCEDURE IN DETAIL: With the patient in left lateral decubitus position, flexible fiberoptic Olympus gastroscope was introduced into the esophagus under direct visualization without any difficulty. There was some patchy erythema noted in distal esophagus. The esophagus was dilated to size 52-Nepalese Garcia. The scope was then advanced with ease into the stomach. Mucosa overlying the antrum and the body revealed some patchy erythema and [id number] edema and biopsies were obtained and sent to stain for H pylori. Pylorus was of normal contour and shape, it was intubated with ease and the scope was advanced all the way to the second portion of the duodenum. The scope was then withdrawn slowly and mucosa overlying the proximal second portion and duodenal bulb grossly was unremarkable. The scope was then pulled back into the stomach and retroflexed and mucosa overlying the fundus and the cardia appeared to be within normal limits. The scope was then straightened out, it was subsequently withdrawn. The patient tolerated the procedure well. IMPRESSION: 1. Distal esophagitis, mild. 2. Esophagus dilated to size 52-Nepalese Garcia. 3. Gastritis, biopsied. Biopsies sent to stain for Helicobacter pylori. PLAN: Follow up histology. Continue Protonix 40 mg one p.o. a.c. b.i.d. and Carafate 1 g p.o. a.c. t.i.d. and at bedtime. Lyndon Klein MD [facility] [place] /[id number] cc: MD Lamonte Hdz MD
--- NOTE | 2018-07-26 11:50 | NUR ---
Patient returned from EGD procedure and is awake, alert and 0x3. Respirations are even and unlabored. Eating ice chips. Says he has some chest pain now, but not wanting any pain medication. Says her pain is about a "6" on verbal pain scale.
[2018-07-26] MEDS ORDERED: HEPARIN 25,000 UNIT/D5W 250ML 250 ML IV SCH (14:00)
--- NOTE | 2018-07-26 14:00 | NUR ---
Dr. Bañuelos called and orders received to resume heparin drip according to protocol. PTT drawn at 1300 was 35.5 and heparin resumed at 1300 u/hr =13cc/hr. Next PTT due at 20:00
[2018-07-26] MEDS ORDERED: FENTANYL CITRATE/PF 100MCG/2 ML INJ ONE (14:58)
[2018-07-26] MEDS ORDERED: MIDAZOLAM HCL 2 MG/2 ML VIAL ONE (14:58)
[2018-07-26] MEDS: WARFARIN SOD 5 MG TAB PO SCH (17:18)
--- NOTE | 2018-07-26 17:33 | NUR ---
Patient says that she is having less chest pain and when she does, the pain level is from 2-4. She is refusing any pain medication.
[2018-07-26] MEDS ORDERED: PROPOFOL IV EMULSION 10 MG/ML 50 ML VIAL ONE (18:32)
[2018-07-26] MEDS ORDERED: LIDOCAINE HCL 2% LOCAL INJ 5 ML SDV VIAL INJ ONE (18:32)
[2018-07-26] MEDS ORDERED: HEPARIN 25,000U/0.45% NS 250ML 1,500 UNIT in Premix Bag 250 ML IV SCH (21:45)
[2018-07-27] VITALS (11 sets, daily range): BP systolic 99–120; BP diastolic 56–87
--- NOTE | 2018-07-27 00:10 | NUR ---
CALLED AND LEFT [facility] FOR DR ARMENDARIZ TO RETURN PHONE CALL TO CLARIFY CONTINUATION OF HEPARIN DRIP
--- NOTE | 2018-07-27 00:24 | NUR ---
DR ARMENDARIZ RETURNED PHONE CALL SO I CAN CLARIFY CONTINUATION OF HEPARIN DRIP. HE ASKED WAS IT RESTARTED, I INFORMED HIM YES THAT MURIAL RN RESTARTED AFTER RETURN FROM EGD PROCEDURE. HE STATED THAT FINE, THEN ASKED IF LOVENOX STILL ON HOLD AND IT IS STILL ON HOLD AND COUMADIN IS STILL ON EMAR. HE INFORMED THAT WAS FINE AND THAT HE WILL BE COMING BY IN THE AM FOR ROUNDS
[2018-07-27] MEDS: ALBUTEROL SULF 0.083% NEB SOLN 3 ML NEB NEB SCH ×4 (01:25→19:30)
--- NOTE | 2018-07-27 01:40 | NUR ---
NEW IV TUBING CHANGED AT THIS TIME
--- NOTE | 2018-07-27 02:36 | NUR ---
LAB CALLED FOR THE 014 PTT RESULTS. PTT AT 112.8. PER HEPARIN PROTOCOL. HOLD FOR 30 MIN THEN DECREASE BY 150UNITS. CURRENT RATE AT 1200 UNITS/HR=12ML/HR SO AT 0300 RATE WILL BE RUNNING AT 10.5ML/HR
[2018-07-27 05:40] LABS: BASOPHILS % 0.4 % (0.0-1.0); EOSINOPHILS # (AUTO) 0.5 (0.0-0.4); EOSINOPHILS % 6.9 % (0.0-6.0); HEMATOCRIT 37.7 % (34.2-44.1); INR 1.4; LYMPHOCYTES # (AUTO) 2.2 (1.0-3.2); LYMPHOCYTES % 27.7 % (18.0-39.1); MEAN CORPUSCULAR HEMOGLOBIN 31.5 pg (28-32); MEAN CORPUSCULAR HGB CONC 33.7 g/dL (31-35); MEAN CORPUSCULAR VOLUME 93.5 fL (81-99); MONOCYTES # (AUTO) 0.4 (0.2-0.8); MONOCYTES % 4.9 % (4.4-11.3); NEUTROPHILS # (AUTO) 4.7 (2.1-6.9); NEUTROPHILS % 59.7 % (38.7-80.0); PLATELET COUNT 276 x10e3/uL (140-360); PROTHROMBIN TIME 17.7 seconds (11.9-14.5); RED BLOOD COUNT 4.03 x10e6/uL (3.6-5.1); RED CELL DISTRIBUTION WIDTH 12.7 % (11.7-14.4)
[2018-07-27 05:43] LABS: HEMOGLOBIN 12.7 g/dL (12.0-16.0)
[2018-07-27] MEDS ORDERED: SODIUM CHLORIDE 0.9% 250ML 250 ML ONE (05:48)
[2018-07-27 05:50] LABS: ANION GAP 11.6 mmol/L (8-16); BLOOD UREA NITROGEN 14 mg/dL (7-26); BUN/CREATININE RATIO 21 (6-25); CALCIUM 8.7 mg/dL (8.4-10.2); CARBON DIOXIDE 25 mmol/L (22-29); CHLORIDE 104 mmol/L (98-107); CREATININE, SERUM 0.66 mg/dL (0.57-1.11); EST GLOMERULAR FILTRATION RATE > 60 ML/MIN (60-); GLUCOSE 97 mg/dL (74-118); POTASSIUM 3.6 mmol/L (3.5-5.1); SODIUM 137 mmol/L (136-145)
[2018-07-27] MEDS: CEFTRIAXONE SOD 1 GM/NS 50 ML 50 ML IV SCH (05:54)
--- NOTE | 2018-07-27 06:20 | Diagnostic Imaging Report ---
EXAMINATION: CHEST SINGLE (PORTABLE) INDICATION: Chest pain. Follow-up. Bilateral lower lobe consolidation. Pulmonary venous congestion. COMPARISON: Chest x-ray 07/24/2018. FINDINGS: AP view TUBES and LINES: None. LUNGS: Lungs are not well inflated. There are bibasilar atelectasis. There is no evidence of pneumonia or pulmonary edema. PLEURA: Possible tiny bilateral pleural effusions. HEART AND MEDIASTINUM: Cardiac size is mildly enlarged. BONES AND SOFT TISSUES: No acute osseous lesion. Soft tissues are unremarkable. UPPER ABDOMEN: No free air under the diaphragm. IMPRESSION: 1. Slight improvement in right basilar atelectasis/consolidation. Unchanged left basilar atelectasis and/or consolidation. 2. Improved central pulmonary venous congestion. Signed by: Dr. Jaime Ac M.D. on 07/27/2018 6:17 AM
[2018-07-27] MEDS ORDERED: BISACODYL 5 MG TAB EC PO NR (07:00)
--- NOTE | 2018-07-27 07:15 | NUR ---
Patient received awake, alert and Ox4. Respirations are even and unlabored. On 02 at 2 liters per nasal cannula and 02 sats are 98. Denies any chest pain at this time. Says she now has it intermittently at times and pain level ranges from a 2-4 on pain scale when she does have it.
[2018-07-27] MEDS: SUCRALFATE 1 GM/10 ML SUSP NG SCH ×4 (07:30→21:51)
--- NOTE | 2018-07-27 08:30 | NUR ---
PTT level at 0800 was 93.3 and Heparin drip decreased by 100 units from 1050 units/hr to 950u/hr =9.5cc/hr.
[2018-07-27] MEDS: PANTOPRAZOLE SOD 40 MG TABEC PO SCH ×2 (08:45→17:52)
[2018-07-27] MEDS ORDERED: WARFARIN SOD 2 MG TAB PO NR ×2 (09:15→09:45)
--- NOTE | 2018-07-27 10:10 | Progress Note ---
DATE: 07/27/2018 SUBJECTIVE: The patient comes into the hospital with acute pulmonary embolism, shortness of breath, and the patient also had painful swallowing and also tenderness in the epigastric area, status post EGD, status post VANDANA. EGD shows esophageal strictures dilated. The patient is currently asymptomatic in that regard. No chest pain. Positive shortness of breath on slight exertion on O2. OBJECTIVE: VITAL SIGNS: Temperature is afebrile at 98.6, pulse of 49, respirations 17, blood pressure is 109/64, pulse oximetry 94%, O2 at 3 L of oxygen. HEENT: Normocephalic and atraumatic. Pupils are reactive to light and accommodation. CVS: S1 and S2 normal. Regular rate and rhythm. ABDOMEN: Nontender and nondistended. EXTREMITIES: No clubbing. No cyanosis. No edema. LABORATORY VALUES: White count is normal. Hemoglobin is 12.7 and hematocrit is 37.7. Chemistry; sodium of 137, potassium of 3.6, BUN of 14, and creatinine 0.6. Coags, APTT 112.8, heparin is on hold at this time. INR was 1.40. The patient is on warfarin 5. ASSESSMENT: Acute pulmonary embolism. PLAN: Plan is to continue with warfarin. We will up the warfarin to 6 mg. The patient also has constipation, we will give some Dulcolax. Bradycardia, will need a sleep apnea study as an outpatient. Morbid obesity, counseling on diet has been done. Dysphagia and pain with swallowing, status post esophageal stricture as an outpatient. Further recommendation and clinical course. We will continue to monitor the patient. The patient can be moved out of ICU to [facility]. Continue with heparin drip and also with bridge to warfarin to keep the INR between 2 and 3. MD MICHELLE Vanessa/MODL /[id number]
--- NOTE | 2018-07-27 11:00 | NUR ---
Coumadin 4mg PO given at 10:[address] Bañuelos's orders and explained to patient the purpose of Coumadin and it's significance in preventing blood clots.
--- NOTE | 2018-07-27 12:56 | Diagnostic Imaging Report ---
PROCEDURE:X-RAY MODIFIED BARIUM SWALLOW COMPARISON:None. INDICATIONS:Dysphasia DISCUSSION:Fluoroscopic examination was performed in conjunction with speech pathology, during swallowing of a variety of thin and thick liquid consistencies. Fluoroscopy time: 0.6 minutes Total dose: 2.94 mGy CONCLUSION:No penetration or aspiration. Please see the report from speech pathology for complete details. Alonzo Goins D.O. Dictated by: Alonzo Goins D.O. on 07/27/2018 at 12:56 Electronically approved by: Alonzo Goins D.O. on 07/27/2018 at 12:56
--- NOTE | 2018-07-27 14:36 | NUR ---
PTT result now is 68.6 and is within therapeutic range. Heparin drip will remain the same at 950 u/hr at 9.5 cc/hr. Patient sitting up in chair with visitors and says she is feeling better every day. Denies any chest pain at this time. Daughter at bedside.
--- NOTE | 2018-07-27 15:40 | NUR ---
Report called to Artemio Julian. Patient will be transferring to Room 109 on Med Surg-1 with telemetry box#8. Daughter at bedside. Patient will be taken via wheelchair.
--- NOTE | 2018-07-27 15:56 | NUR ---
Patient received from ICU at this time. Patient arrived in wheelchair. Patient is A&Ox4. Patient verbalizes no complaints of pain. Daughter and other family members at the bedside. Call medellin within reach. Bed is low and locked.
[2018-07-27] MEDS ORDERED: WARFARIN SOD 3 MG TAB PO SCH (17:00)
--- NOTE | 2018-07-27 21:40 | NUR ---
PTT READING 81.9. HEPARIN DRIP DECREASED BY 100 UNITS/HR. HEPARIN RATE NOW AT 8.5 MLS/HR. WILL DRAW PTT IN 6 HOURS PER PROTOCOL.
[2018-07-27] MEDS: [UNRECOGNIZED DRUG - REMARK] IV SCH (22:00)
[2018-07-28] VITALS (8 sets, daily range): BP systolic 89–117; BP diastolic 51–62
[2018-07-28] MEDS: ALBUTEROL SULF 0.083% NEB SOLN 3 ML NEB NEB SCH ×4 (01:07→19:30)
[2018-07-28] MEDS: [UNRECOGNIZED DRUG - REMARK] IV SCH (03:15)
[2018-07-28 04:08] LABS: INR 1.4; PROTHROMBIN TIME 17.7 seconds (11.9-14.5)
--- NOTE | 2018-07-28 04:25 | NUR ---
PTT IS THERAPEUTIC READING 62.6, NO CHANGE TO HEPARIN DRIP AT 8.5 MLS/HR. Addendum: 07/28/18 at 0644 by Josué Cortes RN WILL DRAW PTT IN 6HRS PER PROTOCOL
--- NOTE | 2018-07-28 07:35 | Progress Note ---
DATE: 07/28/2018 SUBJECTIVE: The patient is a 37-year-old female with acute pulmonary embolism. The patient also had EGD with dilatation of esophageal stricture. The patient is feeling better, is on warfarin at 6 mg. The patient's INR is still at 1.40, feeling better, had a bowel movement yesterday. No chest pain. Possible shortness of breath on exertion. OBJECTIVE: VITAL SIGNS: Temperature is 96.5, pulse of 54, respirations of 18, blood pressure is 107/55, pulse oximetry of 93%. HEENT: Normocephalic, atraumatic. Pupils are reactive to light and accommodation. CVS: S1, S2 normal. ABDOMEN: Slightly tender in the epigastric area. EXTREMITIES: No clubbing, no cyanosis, no edema. LABORATORY VALUES: Stable. The patient's magnesium is 2.5. INR 1.40 today. She is on 6 mg of warfarin. Medication-alvarado, the patient is on heparin protocol, Carafate, warfarin, and pantoprazole. ASSESSMENT AND PLAN: 1. Acute pulmonary embolism. The patient continues to be on heparin drip and continue with warfarin 6 mg. 2. Esophageal stricture status post dilatation. 3. Bradycardia. Continue to monitor the patient's vital signs, sleep apnea. She will need sleep study as an outpatient. Further recommendation per clinical course. We will continue to monitor the patient. The patient can be discharged home when INR is between 2 and 3. Continue daily INR monitoring. MD ERIKA VanessaJ/MODL /[id number]
[2018-07-28] MEDS: SUCRALFATE 1 GM/10 ML SUSP NG SCH ×4 (08:37→21:07)
[2018-07-28] MEDS: PANTOPRAZOLE SOD 40 MG TABEC PO SCH ×2 (08:37→17:37)
[2018-07-28] MEDS ORDERED: [UNRECOGNIZED DRUG - REMARK] IV SCH (09:15)
--- NOTE | 2018-07-28 09:45 | NUR ---
PTT at this time 65.3. Heparin to remain at 850 units/hr or 8.5 mL/hr. Next PTT due 07/29/18 0945.
--- NOTE | 2018-07-28 16:43 | NUR ---
Follow-up Note RD Recommendation(s) for Physician: - Continue current diet as ordered - Continue Ensure TID as ordered - RD provided diet education on Vitamin K on 07/28. Plan of Care: RD following, monitoring for tolerance and adequacy, diet education Nutrition reason for involvement: Follow up RD Assessment 07/28: Pt was discussed during AM rounds. Pt had EGD with dilation of esophageal stricture. Visited pt in the room. Pt tolerated current diet well but continued to have poor appetite. Pt reported <50% meal intake but she drank 50% of Ensure ordered. Discussed menu options. Encouraged family to bring foods from home. Pt stated that she will be going home with Coumadin and requested diet education. RD provided 10mins of education on vitamin K. Will continue to monitor and follow. 07/25: 37 YOF admitted for chest pain, PE, and severe dyspnea. Pt seen today for LOS. Pt discussed during am rounds, pt continues with pulm embolisms and severe dyspnea- barely able to ambulate to bathroom. Per RN VANDANA today and pending MBSS. Pt reports recent poor intake due to her throat hurting when she swallows, severe dyspnea when she tries to eat, and intermittent nausea. Pt reports intentional 10# wt loss over the past year, states she was weighing 290# in 2017. Pt receptive to Ensure Enlive pending MBSS and results. Rec's and POC reviewed with RN. Will monitor and continue to follow. Principal Problems/Diagnoses: PE, chest pain, dyspnea PMH:benign inter-cranial HTN, obesity, HTN GI: abdomen soft, non-tender, round, flatus present Skin: intact Labs: 07/28: N/A 07/24: Mg 2.5 Meds: Carafate, protonix Ht: 65 in Wt: 279 lb; 265lb BMI: 46.4 IBW: 125 lb Malnutrition Evaluation (07/25/18) The patient does not meet criteria for a specified degree of malnutrition at this time. Will re-evaluate at follow-up as appropriate. Pt reports intentional wt loss since 2017, was weighing 290#- insignificant change noted. Nutrition Prescription (Diet Order): cardiac diet + Ensure Enlive TID Estimated Nutritional Needs: 6623-7628 calories/day (22-25 kcal/kg IBW) 85-114 g protein/day (1.5-2 g pro/kg IBW) Diet Adequacy: Not meeting calorie needs, Not meeting protein needs Diet Education Needs Assessment: Diet education indicated, pt was agreeable with plan. Learner(s): pt Time spent: 10minutes Barriers: No barriers identified. Cultural/Language Modifications: No cultural/language modifications noted. Pt speaks Divehi. Readiness: Pt eager to learn. Method: Handout, explanation Topics: Vitamin K nutrition therapy Understanding/Compliance: Expect good understanding/compliance from pt. Will benefit from reinforcement. All questions have been answered. Nutrition Care Level: Low Nutrition Diagnosis: Inadequate energy and protein intake related to current medical conditions- severe dyspnea and nausea as evidenced by poor po intake and not meeting needs. Goal: Patient will meet 75-100% of estimated needs by follow up Progress: Some progress Interventions: modified diet, commercial beverage, diet education Monitoring/Evaluation: Total energy intake, Total protein intake, Modified diet, Liquid supplement, Weight change Signed: Audrey Lemon MS, RD, LD
[2018-07-28] MEDS: WARFARIN SOD 2 MG TAB PO SCH (17:37)
--- NOTE | 2018-07-28 19:24 | NUR ---
WALKING ROUNDS PERFORMED, RECEIVED PT LAYING FOWLERS IN BED, AAOX3, RR EVEN AND NON-LABORED, ON RA. NO S/SX OF DISTRESS NOTED. HEPARIN DRIP NOTED TO (L) AC AT 8.5ML/HR. LEFT PT LAYING FOWLERS IN BED, BED IN LOW LOCKED POSITION, SIDE RAILS UPX2, CALL LIGHT AND PHONE WITHIN REACH.
[2018-07-29] VITALS (8 sets, daily range): BP systolic 96–137; BP diastolic 51–84
[2018-07-29] MEDS: ALBUTEROL SULF 0.083% NEB SOLN 3 ML NEB NEB SCH ×5 (01:02→23:30)
[2018-07-29] MEDS: HEPARIN 25,000U/0.45% NS 250ML 25,000 UNIT in Premix Bag 250 ML IV SCH ×2 (02:00→08:16)
[2018-07-29 06:37] LABS: BASOPHILS # (AUTO) 0.1 (0.0-0.1); BASOPHILS % 0.8 % (0.0-1.0); EOSINOPHILS # (AUTO) 0.4 (0.0-0.4); EOSINOPHILS % 6.6 % (0.0-6.0); HEMATOCRIT 39.3 % (34.2-44.1); HEMOGLOBIN 13.2 g/dL (12.0-16.0); LYMPHOCYTES # (AUTO) 1.7 (1.0-3.2); LYMPHOCYTES % 29.4 % (18.0-39.1); MEAN CORPUSCULAR HEMOGLOBIN 31.3 pg (28-32); MEAN CORPUSCULAR HGB CONC 33.6 g/dL (31-35); MEAN CORPUSCULAR VOLUME 93.1 fL (81-99); MONOCYTES # (AUTO) 0.4 (0.2-0.8); MONOCYTES % 6.8 % (4.4-11.3); NEUTROPHILS # (AUTO) 3.3 (2.1-6.9); NEUTROPHILS % 56.1 % (38.7-80.0); PLATELET COUNT 260 x10e3/uL (140-360); RED BLOOD COUNT 4.22 x10e6/uL (3.6-5.1); RED CELL DISTRIBUTION WIDTH 12.9 % (11.7-14.4)
[2018-07-29 06:52] LABS: INR 1.77; PROTHROMBIN TIME 21.3 seconds (11.9-14.5)
--- NOTE | 2018-07-29 07:11 | Progress Note ---
DATE: 07/29/2018 SUBJECTIVE: The patient is a 37-year-old female, comes in with acute pulmonary embolism, history of dysphagia and pain, status post EGD and currently on heparin protocol and on warfarin bridge. No chest pains today. Shortness of breath was manifested on walking. The patient had to get back on oxygen last night and currently on 3 L of oxygen. No other complaints. Bowel movements positive. The patient is afebrile. OBJECTIVE: VITAL SIGNS: Temperature is 96.7, pulse of 63, respiration of 17, blood pressure is 99/51, pulse oximetry of 93% on 2 L of oxygen. HEENT: Normocephalic, atraumatic. Pupils are reactive to light and accommodation. CVS: S1, S2 normal. Regular rate and rhythm. ABDOMEN: Nontender, nondistended. EXTREMITIES: No clubbing, no cyanosis, and no edema. LABORATORY VALUES: PT INR pending. ASSESSMENT: 1. Acute pulmonary embolism. Continue with heparin protocol and bridge to warfarin to maintain PT, INR between 2 and 3. 2. Esophageal stricture, status post dilatation. 3. Reflux esophagitis and gastritis. Continue on PPI. 4. Bradycardia. We will continue to monitor. DISPOSITION: The patient will be discharged home when the INR is between 2 and 3. MD MICHELLE Vanessa/MODL /[id number]
--- NOTE | 2018-07-29 07:27 | NUR ---
PTT LEVEL DRAWN AT 0610 RESULT 99.7. BLOOD WAS DRAWN FROM LEFT ARM, SAME ARM WHERE HEPARIN DRIP IS RUNNING. CALLED LAB TO REDRAW FROM RIGHT ARM TO CHECK FOR ACCURACY. AWAITING RESULTS.
[2018-07-29] MEDS: SUCRALFATE 1 GM/10 ML SUSP NG SCH ×4 (08:14→20:39)
[2018-07-29] MEDS: PANTOPRAZOLE SOD 40 MG TABEC PO SCH ×2 (08:14→16:02)
--- NOTE | 2018-07-29 08:15 | NUR ---
0730 PTT RESULT 94.1. ALTHOUGH IT WAS DRAWN ON RIGHT ARM. HEPARIN DRIP DECREASED BY 100 UNITS FROM 8.5 TO 7.5 ML/HR AT THIS TIME. RECHECK PTT LEVEL IN 6 HOURS AT 1415.
--- NOTE | 2018-07-29 15:11 | NUR ---
PTT 51.7 THERAPEUTIC RANGE. RECHECK PTT IN 6 HOURS AT 2030.
[2018-07-29] MEDS: WARFARIN SOD 2 MG TAB PO SCH (16:02)
--- NOTE | 2018-07-29 19:15 | NUR ---
WALKING ROUNDS PERFORMED, RECEIVED PT LAYING SEMI FOWLERS IN BED, AAOX3, RR EVEN AND NON-LABORED, ON RA. HEPARIN DRIP AT 7.5ML/HR INFUSING TO (L) AC. NO S/SX OF DISTRESS NOTED. LEFT PT LAYING SEMI FOWLERS IN BED, BED IN LOW LOCKED POSITION , SIDE RAILS UPX2, CALL LIGHT AND PHONE WITHIN REACH.
--- NOTE | 2018-07-29 20:33 | NUR ---
PTT NOTED TO BE WITHIN NORMAL LIMITS. NO RATE CHANGE MADE TO HEPARIN DRIP. DRIP TO REMAIN AT 7.5ML/HR. WILL REDRAW PTT IN AM.
[2018-07-30] VITALS (8 sets, daily range): BP systolic 84–117; BP diastolic 51–68
[2018-07-30 06:12] LABS: BASOPHILS # (AUTO) 0.1 (0.0-0.1); BASOPHILS % 0.8 % (0.0-1.0); EOSINOPHILS # (AUTO) 0.4 (0.0-0.4); EOSINOPHILS % 5.8 % (0.0-6.0); HEMATOCRIT 39.9 % (34.2-44.1); HEMOGLOBIN 13.4 g/dL (12.0-16.0); LYMPHOCYTES # (AUTO) 1.9 (1.0-3.2); LYMPHOCYTES % 29.6 % (18.0-39.1); MEAN CORPUSCULAR HEMOGLOBIN 31.5 pg (28-32); MEAN CORPUSCULAR HGB CONC 33.6 g/dL (31-35); MEAN CORPUSCULAR VOLUME 93.9 fL (81-99); MONOCYTES # (AUTO) 0.3 (0.2-0.8); MONOCYTES % 4.9 % (4.4-11.3); NEUTROPHILS # (AUTO) 3.8 (2.1-6.9); NEUTROPHILS % 58.6 % (38.7-80.0); PLATELET COUNT 255 x10e3/uL (140-360); RED BLOOD COUNT 4.25 x10e6/uL (3.6-5.1)
[2018-07-30] MEDS: ALBUTEROL SULF 0.083% NEB SOLN 3 ML NEB NEB SCH ×3 (06:33→18:50)
[2018-07-30 07:18] LABS: INR 1.85
--- NOTE | 2018-07-30 07:30 | NUR ---
PTT RESULT 86.1 DECREASE BY 100 UNITS PER PROTOCOL AND RECHECK PTT IN 6 HOURS AT 1330.
[2018-07-30] MEDS: HEPARIN 25,000U/0.45% NS 250ML 25,000 UNIT in Premix Bag 250 ML IV SCH (07:32)
[2018-07-30] MEDS: PANTOPRAZOLE SOD 40 MG TABEC PO SCH ×2 (08:16→16:39)
[2018-07-30] MEDS: SUCRALFATE 1 GM/10 ML SUSP NG SCH ×4 (08:16→20:30)
--- NOTE | 2018-07-30 10:11 | Progress Note ---
DATE: 07/30/2018 SUBJECTIVE: This patient came in with acute pulmonary embolism. The patient is on heparin drip and on warfarin to try and keep the INR between 2 and 3. The patient is currently asymptomatic, did not qualify for home O2 yesterday, did well. No chest pain. No shortness of breath. The patient is feeling better at this time. OBJECTIVE: VITAL SIGNS: Temperature is 96.2, pulse of 55, respiration of 20, blood pressure is 111/59, and pulse oximetry of 91% on room air. HEENT: Normocephalic and atraumatic. Pupils are reactive to light and accommodation. CVS: S1 and S2 normal, regular rate and rhythm. ABDOMEN: Nontender and nondistended. EXTREMITIES: No clubbing, no cyanosis, and/or no edema. LABORATORY VALUES: Coags today are still pending. The patient's APTT is 86.1. ASSESSMENT: 1. Acute pulmonary embolism, the patient is currently on heparin protocol bridge to warfarin. 2. Esophageal stricture, status post dilatation. 3. Reflux esophagitis, continue PPI. 4. Bradycardia, we will continue to monitor. 5. Sleep apnea. We will need a sleep study as an outpatient basis. Further recommendation per clinical course. The patient can be discharged when INR is between 2 and 3. MD ERIKA VanessaJ/MODL /[id number]
[2018-07-30] MEDS: WARFARIN SOD 2 MG TAB PO SCH (16:39)
--- NOTE | 2018-07-30 19:25 | NUR ---
WALKING ROUNDS PERFORMED, RECEIVED PT LAYING SEMI FOWLERS IN BED, AAOX3, RR EVEN AND NON-LABORED, ON RA. HEPARIN DRIP AT 6.5ML/HR INFUSING TO (L) AC. NO S/SX OF DISTRESS NOTED. LEFT PT LAYING SEMI FOWLERS IN BED, BED IN LOW LOCKED POSITION , SIDE RAILS UPX2, CALL LIGHT AND PHONE WITHIN REACH.
--- NOTE | 2018-07-30 20:40 | NUR ---
PTT NOTED TO BE WITHIN NORMAL LIMITS. NO RATE CHANGE MADE TO HEPARIN DRIP. DRIP TO REMAIN AT 6.5ML/HR. WILL REDRAW PTT IN AM.
[2018-07-31] VITALS: BP 102/56
[2018-07-31] MEDS: HEPARIN 25,000U/0.45% NS 250ML 25,000 UNIT in Premix Bag 250 ML IV SCH (03:10)
[2018-07-31 04:00] VITALS: BP 94/53
[2018-07-31 06:57] LABS: BASOPHILS % 0.7 % (0.0-1.0); EOSINOPHILS # (AUTO) 0.3 (0.0-0.4); HEMATOCRIT 39.7 % (34.2-44.1); LYMPHOCYTES # (AUTO) 1.9 (1.0-3.2); LYMPHOCYTES % 34.3 % (18.0-39.1); MEAN CORPUSCULAR HEMOGLOBIN 31.1 pg (28-32); MEAN CORPUSCULAR HGB CONC 32.7 g/dL (31-35); MONOCYTES # (AUTO) 0.4 (0.2-0.8); MONOCYTES % 6.7 % (4.4-11.3); NEUTROPHILS # (AUTO) 2.9 (2.1-6.9); NEUTROPHILS % 52.9 % (38.7-80.0); PLATELET COUNT 242 x10e3/uL (140-360); RED BLOOD COUNT 4.18 x10e6/uL (3.6-5.1); RED CELL DISTRIBUTION WIDTH 12.9 % (11.7-14.4)
--- NOTE | 2018-07-31 07:29 | NUR ---
RECEIVED PATIENT AWAKE IN BED NO SIGNS OF DISTRESS. CALL LIGHT IN REACH WILL CONTINUE TO MONITOR.
[2018-07-31] MEDS: ALBUTEROL SULF 0.083% NEB SOLN 3 ML NEB NEB SCH (07:41)
[2018-07-31 07:59] LABS: INR 2.05; PROTHROMBIN TIME 23.8 seconds (11.9-14.5)
--- NOTE | 2018-07-31 08:27 | NUR ---
PTT CAME BACK AT 67.1. ACCORDING TO PROTOCOL, NO CHANGE IN RATE AT THIS TIME. HEPARIN DRIP AT 6.5 MLS/HR.
[2018-07-31 08:31] VITALS: BP 110/57
[2018-07-31] MEDS: SUCRALFATE 1 GM/10 ML SUSP NG SCH (09:34)
[2018-07-31] MEDS: PANTOPRAZOLE SOD 40 MG TABEC PO SCH (09:34)
[2018-07-31] MEDS ORDERED: WARFARIN SODIUM3 MG PO (09:57)
[2018-07-31] MEDS ORDERED: PANTOPRAZOLE SO40 MG PO (09:58)
[2018-07-31 10:05] VITALS: BP 110/57
--- NOTE | 2018-07-31 10:06 | Progress Note ---
DATE: 07/31/2018 SUBJECTIVE: The patient is here for acute pulmonary embolism. The patient is on heparin drip. Awaiting warfarin to be therapeutic. Currently asymptomatic, did sleep well. Shortness of breath has dissipated on ambulation. The patient is currently on Protonix, status post esophageal dilatation. OBJECTIVE: GENERAL: On examination, alert, oriented x3. No complaints at this time. VITAL SIGNS: Temperature is 96.5, pulse of 51, respirations of 19, blood pressure is 94/53, and pulse oximetry of 92%. HEENT: Normocephalic, atraumatic. Pupils are reactive to light and accommodation. CVS: S1 and S2 normal. Regular rate and rhythm. LUNGS: Decreased air entry into lower bases. ABDOMEN: Slightly distended, tender in the epigastric area. EXTREMITIES: No clubbing, no cyanosis, and no edema. LABORATORY VALUES: Yesterday's INR was 1.85. Awaiting numbers today. The patient can be discharged when INR is between 2-3. ASSESSMENT: 1. Acute pulmonary embolism. 2. Acute respiratory failure with hypoxia. 3. History of esophageal stricture and esophagitis. 4. History of bradycardia. 5. Symptoms suggestive of sleep apnea and morbid obesity. PLAN: Plan is to discharge the patient home when INR is between 2-3. Continue current medications. Further recommendation per clinical course. The patient can be discharged if INR is between 2 and 3 today. MD ERIKA VanessaJ/MODL /[id number]
--- NOTE | 2018-07-31 10:20 | NUR ---
REMOVED RIGHT HAND IV AND LEFT AC IV. CATHETER TIPS INTACT AND PRESSURE DRESSING APPLIED.
--- NOTE | 2018-07-31 10:38 | NUR ---
PATIENT DISCHARGED FROM FACILITY. PATIENT GATHERED ALL PERSONAL BELONGINGS AND DISCHARGE INSTRUCTIONS. LEFT UNIT IN WHEELCHAIR AND WENT HOME VIA PRIVATE AUTO.
== END 2018-07-31 10:39 | disposition home or self-care (01) | DRG 175 ==
LOC: IMCU 15:32 → ICU 07-20 20:16 → OBSVTOIN 07-20 20:44 → MED/SURG 07-27 15:57
PROVIDERS: ADMIT Family Medicine; ATTEND Family Medicine
PROC: 0D758ZZ Dilation of Esophagus, Via Natural or Artificial Opening Endoscopic (ICD-10-PCS; principal; 2018-07-26 10:40)
PROC: 0DB78ZX Excision of Stomach, Pylorus, Via Natural or Artificial Opening Endoscopic, Diagnostic (ICD-10-PCS; 2018-07-26 10:40)
DX: I26.99 Other pulmonary embolism without acute cor pulmonale (principal); J96.01 Acute respiratory failure with hypoxia; Z68.41 Body mass index [BMI] 40.0-44.9, adult; K22.2 Esophageal obstruction; K21.0 Gastro-esophageal reflux disease with esophagitis; K29.70 Gastritis, unspecified, without bleeding; R00.1 Bradycardia, unspecified; H40.059 Ocular hypertension, unspecified eye; E66.01 Morbid (severe) obesity due to excess calories; G47.33 Obstructive sleep apnea (adult) (pediatric)
CPT/HCPCS: 36415; 43239; 43450; 71045; 71260; 74177; 74230; 80048; 80053; 81241; 81400; 82550; 82553; 83735; 84443; 84484; 84702; 85025; 85303; 85306; 85379; 85610; 85730; 87040; 88305; 88312; 93005; 93306; 93312; 93320; 93325; 93970; 94640; G0378; J0456; J0696; J1644; J1650; J1885; J2001; J2250; J2270; J2920; J7030; J7050; J7512; Q9967

== ENCOUNTER → 2018-08-16 | Outpatient (CLI) | payer BC ==
[~2018-08-16] MED LIST changes: +IOPAMIDOL 370 MG/ML 200 ML INFUS..BTL INJ ONE; -LIDOCAINE HCL 2% LOCAL INJ 5 ML SDV VIAL INJ ONE; +PANTOPRAZOLE SO40 MG PO; -PROPOFOL IV EMULSION 10 MG/ML 20 ML VIAL ONE; +SODIUM CHLORIDE 0.9% 50ML 50 ML ONE; +WARFARIN SODIUM3 MG PO
--- NOTE | 2018-08-16 21:06 | Diagnostic Imaging Report ---
EXAM: CT Chest WITH contrast 08/16/2018 5:04 PM INDICATION: Pulmonary embolism. COMPARISON: . TECHNIQUE: Chest was scanned utilizing a multidetector helical scanner from the lung apex through the level of the adrenal glands without administration of IV contrast. Coronal and sagittal reformations were obtained. Pulmonary embolism protocol was performed. IV CONTRAST: 100 mL of Omnipaque 300 RADIATION DOSE: Total DLP: 610.05 mGy*cm Estimated effective dose: (DLP x 0.014 x size factor) mSv COMPLICATIONS: None FINDINGS: LINES/ TUBES: None. LUNGS AND AIRWAYS: No filling defects to the resolved segmental level. Interval complete resolution of previously present pulmonary nodules. Linear density in the lingula suggestive of platelike atelectasis versus scarring. Left basilar dependent atelectasis. Airways are normal. PLEURA: The pleural spaces are clear. HEART AND MEDIASTINUM: The thyroid gland is normal. No mediastinal, hilar or axillary lymphadenopathy. The heart is normal in size.. There is no pericardial effusion. UPPER ABDOMEN: Limited non-contrast views of the upper abdomen show cholelithiasis. The adrenal glands are normal. BONES: The visualized bony thorax is within normal limits. SOFT TISSUES: Unremarkable. IMPRESSION: 1. No pulmonary embolism. 2. Interval complete resolution of previously present numerous pulmonary nodules. 3. Cholelithiasis. Signed by: Dr. Linwood Live M.D. on 08/17/2018 5:18 PM
== END ==
LOC: CT 17:00
PROVIDERS: ATTEND Internal Medicine Cardiovascular Disease
DX: I26.99 Other pulmonary embolism without acute cor pulmonale (principal)
CPT/HCPCS: 71260; Q9967

== ENCOUNTER 2020-05-06 13:49 | Emergency (ER) | payer BC ==
[~2020-05-06] VITALS: Ht 165.1 cm; Wt 116.6 kg
[~2020-05-06 13:49] MED LIST changes: -IOPAMIDOL 370 MG/ML 200 ML INFUS..BTL INJ ONE; -SODIUM CHLORIDE 0.9% 50ML 50 ML ONE
[2020-05-06 15:06] LABS: BASOPHILS % 0.3 % (0.0-1.0); EOSINOPHILS # (AUTO) 0.1 (0.0-0.4); EOSINOPHILS % 1.7 % (0.0-6.0); HEMATOCRIT 37.8 % (34.2-44.1); HEMOGLOBIN 12.4 g/dL (12.0-16.0); LYMPHOCYTES # (AUTO) 1.8 (1.0-3.2); LYMPHOCYTES % 26.6 % (18.0-39.1); MEAN CORPUSCULAR HEMOGLOBIN 31.9 pg (28-32); MEAN CORPUSCULAR HGB CONC 32.8 g/dL (31-35); MEAN CORPUSCULAR VOLUME 97.2 fL (81-99); MONOCYTES # (AUTO) 0.4 (0.2-0.8); MONOCYTES % 5.5 % (4.4-11.3); NEUTROPHILS # (AUTO) 4.6 (2.1-6.9); NEUTROPHILS % 65.6 % (38.7-80.0); PLATELET COUNT 283 x10e3/uL (140-360); RED BLOOD COUNT 3.89 x10e6/uL (3.6-5.1); RED CELL DISTRIBUTION WIDTH 13.6 % (11.7-14.4)
[2020-05-06 15:25] LABS: ALANINE AMINOTRANSFERASE 14 IU/L (0-55); ALBUMIN 3.9 g/dL (3.5-5.0); ALBUMIN/GLOBULIN RATIO 1.3 (0.8-2.0); ALKALINE PHOSPHATASE 59 IU/L (40-150); ANION GAP 13.6 mmol/L (8-16); BLOOD UREA NITROGEN 16 mg/dL (7-26); BUN/CREATININE RATIO 23 (6-25); CALCIUM 8.7 mg/dL (8.4-10.2); CARBON DIOXIDE 26 mmol/L (22-29); CHLORIDE 104 mmol/L (98-107); CREATININE, SERUM 0.69 mg/dL (0.57-1.11); EST GLOMERULAR FILTRATION RATE > 60 ML/MIN (60-); GLUCOSE 87 mg/dL (74-118); POTASSIUM 3.6 mmol/L (3.5-5.1); SODIUM 140 mmol/L (136-145)
== END 2020-05-06 17:51 | disposition home or self-care (01) ==
LOC: ER 14:04
DX: R05 Cough (principal); R42 Dizziness and giddiness; R10.13 Epigastric pain; Z79.01 Long term (current) use of anticoagulants
CPT/HCPCS: 36415; 71260; 80053; 83880; 84484; 84702; 85025; 93005; 99283